=== PATIENT | female | born 1960 | race Hispanic/Latino ===

== ENCOUNTER 2019-01-15 06:10 | Emergency (ER) | payer BC ==
--- OUTSIDE RECORDS SUMMARY | 2019-01-15 06:15 | XMS REPORT | Clinical Summary ---
:1960 Author Organization [facility] Address [address] [place] [address] Care Team Providers Name Role Phone Kirby Gallegos MD Primary Care Provider Allergies Active Allergy Reactions Severity Noted Date Comments Adhesive Rash Low 02/15/2013 Codeine Nausea And Vomiting 02/15/2013 nausea Codeine Phosphate Nausea And Vomiting 08/14/2009 Phenylpropanolamin-Hydrocodone Nausea And Vomiting 08/14/2009 Medications Medication Sig Dispensed Refills Start End Date Status Date atorvastatin (LIPITOR) Take 20 mg by 5 Active 20 MG tablet mouth daily. 6 ranitidine (ZANTAC) Take 150 mg 0 Active 150 MG tablet by mouth nightly. lidocaine-prilocaine 0 Active (EMLA) 2.5-2.5 % cream 8 diclofenac (VOLTAREN) Apply 3 Tube 1 Active 1 % gel topically 4 8 (four) times a day. nitroglycerin Place 0.3 30 g 5 05/11/20 Active (NITROSTAT) 2 % inches on the 8 19 ointment skin 3 (three) times a day. Apply to affected digit(s) enoxaparin (LOVENOX) Inject 0.3 mL 20 Syringe 0 Active 30 mg/0.3 mL syringe (30 mg total) 8 under the skin every 12 (twelve) hours. amLODIPine (NORVASC) TAKE 1 TABLET 90 tablet 0 Active 10 mg tablet BY MOUTH 8 DAILY warfarin (COUMADIN) 1 TAKE 4 364 tablet 0 Active MG tablet TABLETS BY 8 MOUTH EVERY DAY DIRECTED levothyroxine TK 1 T PO QD. 3 Active (SYNTHROID, LEVOXYL) 9 75 mcg tablet sildenafil, TAKE 1 TABLET 90 tablet Active antihypertensive, BY MOUTH 9 (REVATIO) 20 mg tablet THREE TIMES DAILY warfarin (COUMADIN) 5 TAKE 1 TABLET 90 tablet 1 Active MG tablet BY MOUTH 9 EVERY DAY omeprazole (PriLOSEC) TAKE 1 180 capsule 3 Active 40 MG capsule CAPSULE BY 9 MOUTH TWICE DAILY hydroxychloroquine TAKE 2 180 tablet 0 11/03/19 Active (PLAQUENIL) 200 mg TABLETS BY 9 20 tablet MOUTH EVERY DAY losartan (COZAAR) 50 TAKE 1 TABLET 90 tablet 3 Active MG tablet BY MOUTH 9 EVERY DAY. FLUoxetine (PROzac) 10 TAKE 1 TABLET 90 tablet 0 Active MG tablet BY MOUTH 9 DAILY levothyroxine Take 50 mcg 0 08/25/19 Discontinued (SYNTHROID, by mouth 19 LEVOTHROID) 50 MCG every tablet morning. esomeprazole (NexIUM) Take by 0 03/29/20 Discontinued 40 mg packet mouth. 18 omeprazole (PriLOSEC) Take 1 180 capsule 1 01/17/20 Discontinued 40 MG capsule capsule (40 8 18 mg total) by mouth 2 (two) times a day. sildenafil, TAKE 1 TABLET 90 tablet 09/22/19 Discontinued antihypertensive, (20 MG TOTAL) 8 19 (REVATIO) 20 mg tablet THREE TIMES DAILY FLUoxetine (PROzac) 10 Take 1 tablet 90 tablet 1 03/16/20 Discontinued MG tablet (10 mg total) 8 18 by mouth daily. warfarin (COUMADIN) 5 TAKE 1 TABLET 30 tablet 4 03/14/20 Discontinued MG tablet BY MOUTH 8 18 EVERY DAY. amLODIPine (NORVASC) Take 1 tablet 30 tablet 5 04/26/20 Discontinued 10 mg tablet (10 mg total) 8 18 by mouth daily. nitroglycerin Place 0.3 30 g 0 05/11/20 Discontinued (NITROSTAT) 2 % inches on the 8 18 ointment skin 3 (three) times a day. Apply to affected digit(s) pentoxifylline Take 1 tablet 90 tablet 3 03/29/20 Discontinued (TRENTal) 400 mg CR (400 mg 8 18 tablet total) by mouth 3 (three) times a day with meals. rosuvastatin (CRESTOR) Take 1 tablet 30 tablet 3 11/12/19 20 MG tablet (20 mg total) 8 19 by mouth daily. hydroxychloroquine TAKE 2 180 tablet 1 05/23/20 Discontinued (PLAQUENIL) 200 mg TABLETS BY 8 18 tablet MOUTH ONCE DAILY. warfarin (COUMADIN) 1 TAKE 4 360 tablet 0 06/18/20 Discontinued MG tablet TABLETS BY 8 18 MOUTH ONCE DAILY DIRECTED. omeprazole (PriLOSEC) TAKE ONE 180 capsule 0 04/16/20 Discontinued 40 MG capsule CAPSULE BY 8 18 MOUTH TWICE DAILY diclofenac (VOLTAREN) Apply 2 g 0 05/11/20 Discontinued 1 % gel topically 4 18 (four) times a day. warfarin (COUMADIN) 5 TAKE 1 TABLET 30 tablet 5 09/27/19 Discontinued MG tablet BY MOUTH 8 19 EVERY DAY FLUoxetine (PROzac) 10 TAKE 1 TABLET 90 tablet 1 09/23/19 Discontinued MG tablet BY MOUTH 8 19 DAILY. traMADol-acetaminophen Take 50 0 03/29/20 Discontinued (ULTRACET) 37.5-325 mg tablets by 18 per tablet mouth every 6 (six) hours. losartan (COZAAR) 50 Take 1 tablet 30 tablet 1 05/31/20 Discontinued MG tablet (50 mg total) 8 18 by mouth daily. omeprazole (PriLOSEC) TAKE 1 180 capsule 0 07/24/19 Discontinued 40 MG capsule CAPSULE BY 8 19 MOUTH TWICE DAILY amLODIPine (NORVASC) TAKE 1 TABLET 30 tablet 0 05/31/20 Discontinued 10 mg tablet BY MOUTH 8 18 DAILY. hydroxychloroquine TAKE 2 180 tablet 0 08/07/19 Discontinued (PLAQUENIL) 200 mg TABLETS BY 8 19 tablet MOUTH EVERY DAY amLODIPine (NORVASC) TAKE 1 TABLET 30 tablet 0 05/31/20 Discontinued 10 mg tablet BY MOUTH 8 18 DAILY losartan (COZAAR) 50 TAKE 1 30 tablet 0 07/02/20 Discontinued MG tablet TABLET(50 MG) 8 18 BY MOUTH DAILY warfarin (COUMADIN) 1 TAKE 4 360 tablet 0 06/20/20 Discontinued MG tablet TABLETS BY 8 18 MOUTH EVERY DAY DIRECTED losartan (COZAAR) 50 TAKE 1 30 tablet 0 07/04/20 Discontinued MG tablet TABLET(50 MG) 8 18 BY MOUTH DAILY losartan (COZAAR) 50 TAKE 1 90 tablet 0 12/11/19 Discontinued MG tablet TABLET(50 MG) 8 19 BY MOUTH DAILY omeprazole (PriLOSEC) TAKE 1 180 capsule 0 10/22/19 Discontinued 40 MG capsule CAPSULE BY 9 19 MOUTH TWICE DAILY losartan (COZAAR) 50 TAKE 1 30 tablet 0 08/25/19 Discontinued MG tablet TABLET(50 MG) 9 19 BY MOUTH DAILY hydroxychloroquine TAKE 2 180 tablet 0 11/03/19 Discontinued (PLAQUENIL) 200 mg TABLETS BY 9 19 tablet MOUTH EVERY DAY FLUoxetine (PROzac) 10 TAKE 1 TABLET 90 tablet 0 12/28/19 Discontinued MG tablet BY MOUTH 9 19 DAILY amLODIPine (NORVASC) TAKE 1 TABLET 30 tablet 0 11/09/19 Discontinued 10 mg tablet BY MOUTH 9 19 DAILY amLODIPine (NORVASC) TAKE 1 TABLET 90 tablet 1 12/22/19 Discontinued 10 mg tablet BY MOUTH 9 19 DAILY Active Problems Problem Noted Date Ischemic ulcer of finger with fat layer exposed 03/29/2018 Raynaud disease 12/28/2017 Chronic diarrhea 09/22/2017 Lower abdominal pain 09/22/2017 Plantar fasciitis of left foot 05/25/2017 Entrapment of right ulnar nerve 09/17/2016 Pain of left heel 09/17/2016 CREST syndrome 05/27/2016 Carpal tunnel syndrome, left 05/27/2016 Carpal tunnel syndrome of right wrist 05/27/2016 GERD (gastroesophageal reflux disease) 12/18/2015 Other forms of systemic lupus erythematosus 12/18/2015 Overview: anticoagulant Raynaud's disease with gangrene 12/18/2015 Sjogren's syndrome 12/18/2015 Small bowel telangectasias 12/18/2015 degenerative disc disease 12/18/2015 Overview: Confirmed with lumbar MRI Renal cell carcinoma 12/18/2015 Overview: Removed 2010 Renal stones 12/18/2015 Resolved Problems Problem Noted Date Resolved Date Infection of finger 11/10/2016 08/25/2018 Encounters Date Type Specialty Care Team Description 12/27/2018 Refill Rheumatology Maris Morejon MD 12/21/2018 Office Visit Rheumatology Darleen, Sjogren's syndrome with keratoconjunctivitis sicca (HCC) (Primary Dx); MD Maris Other systemic lupus erythematosus with other organ involvement (HCC); Raynaud's disease with gangrene (HCC); CREST syndrome (HCC); High risk medication use; Anticoagulant long-term use 12/10/2018 Refill Rheumatology Maris Morejon MD 11/08/2018 Refill Rheumatology Maris Morejon MD 11/07/2018 Refill Rheumatology Maris Morejon MD 11/02/2018 Refill Rheumatology Maris Morejon MD 10/21/2018 Refill Rheumatology Maris Morejon MD 09/26/2018 Refill Rheumatology Maris Morejon MD 09/22/2018 Refill Rheumatology Maris Morejon MD 09/21/2018 Refill Rheumatology Maris Morejon MD 08/25/2018 Office Visit Rheumatology Darleen, Sjogren's syndrome with keratoconjunctivitis sicca (HCC) (Primary Dx); MD Maris High risk medication use; Other systemic lupus erythematosus with other organ involvement (HCC); CREST syndrome (HCC); Gastroesophageal reflux disease with esophagitis 08/25/2018 Orders Only Rheumatology Mcmahon, Sicca syndrome with VAL Pineda keratoconjunctivitis (HCC) (Primary Dx) 08/07/2018 Refill Rheumatology Maris Morejon MD 07/30/2018 Refill Rheumatology Maris Morejon MD 07/24/2018 Refill Rheumatology Maris Morejon MD 07/03/2018 Refill Rheumatology Maris Morejon MD 07/02/2018 Refill Rheumatology Maris Morejon MD 07/01/2018 Orders Only Rheumatology Diana Rico MD 07/01/2018 Telephone Rheumatology Parish Morgan MA 06/20/2018 Refill Rheumatology Maris Morejon MD 06/18/2018 Refill Rheumatology Maris Morejon MD 06/14/2018 Telephone Rheumatology Liza Foster MA 05/31/2018 Refill Rheumatology Maris Morejon MD 05/31/2018 Refill Rheumatology Maris Morejon MD 05/31/2018 Telephone Rheumatology Liza Foster MA 05/23/2018 Refill Rheumatology Maris Morejon MD 05/17/2018 Telephone Rheumatology Liza Foster MA 05/11/2018 Office Visit Rheumatology Darleen, CREST syndrome (HCC) (Primary Dx); MD Maris Ischemic ulcer of finger with fat layer exposed (HCC); Gastroesophageal reflux disease with esophagitis; High risk medication use; Anticoagulant long-term use 05/11/2018 Telephone Rheumatology Parish Morgan MA 04/29/2018 Clinical Physical Medicine Kenya Yoder Raynaud's disease with gangrene (HCC) (Primary Dx); Support and Rehabilitation MD Star Shresthanaud's disease without gangrene 04/26/2018 Refill Rheumatology Maris Morejon MD 04/16/2018 Refill Rheumatology Maris Morejon MD 03/31/2018 Telephone Rheumatology Maris Morejon MD 03/29/2018 Office Visit Rheumatology Darleen, Raynaud's disease with gangrene (Primary Dx); MD Maris Ischemic ulcer of finger, limited to breakdown of skin; CREST syndrome; Sjogren's syndrome with keratoconjunctivitis sicca; High risk medication use; Anticoagulant long-term use 03/24/2018 Telephone Rheumatology Liza Foster MA 03/24/2018 Telephone Rheumatology Liza Foster MA 03/16/2018 Refill Rheumatology Maris Morejon MD 03/14/2018 Refill Rheumatology Maris Morejon MD 02/25/2018 Office Visit Physical Medicine Kenya Yoder Raynaud's disease without gangrene (Primary Dx); and Rehabilitation MD Star Shresthanaud's disease with gangrene 01/24/2018 Orders Only Rheumatology ProviderDiana MD 01/21/2018 Clinical Physical Medicine [place] Yoder's disease with Support and Rehabilitation MD Henrietta gangrene (Primary Dx) 01/16/2018 Refill Rheumatology Maris Morejon MD after 01/14/2018 Family History Medical History Relation Name Comments Cancer Other aunt stomach ca Other Other niece abdominal desmoid tumor Lupus Other niece antiocoagulant Diabetes Sister Rheum arthritis Sister bhavin owusu +ccp Relation Name Status Comments Other aunt Other Other niece Other Other niece Other Sister Sister bhavin owusu Alive Social History Tobacco Use Types Packs/Day Years Used Date Never Smoker Smokeless Tobacco: Never Used Alcohol Use Drinks/Week oz/Week Comments Yes 1-2 Cans of beer 0.6 - 1.2 1-2 per month Sex Assigned at Date Recorded Not on file Job Start Date Occupation Industry Not on file Not on file Not on file Travel History Travel Start Travel End No recent travel history available. Last Filed Vital Signs Vital Sign Reading Time Taken Blood Pressure 120/58 12/21/2018 2:07 PM CDT Pulse 73 12/21/2018 2:07 PM CDT Temperature - - Respiratory Rate - - Oxygen Saturation - - Inhaled Oxygen Concentration - - Weight 71.2 kg (157 lb) 12/21/2018 2:07 PM CDT Height 157.5 cm (5' 2") 05/11/2018 8:45 AM CDT Body Mass Index 28.72 05/11/2018 8:45 AM CDT Plan of Treatment Date Type Specialty Care Team Description 04/24/2019 Office [place] [address] [facility] [address] [place] [id number] Health Maintenance Due Date Last Done Comments BREAST CANCER SCREENING 2010 COLONOSCOPY SCREENING 2010 SHINGLES VACCINES (#1) 2010 INFLUENZA VACCINE 02/09/2019 Procedures Procedure Name Priority Date/Time Associated Diagnosis Comments MICROSCOPIC EXAMINATION Routine 12/21/2018 Results for 2:50 PM CDT this procedure are in the results section. URINE Routine 12/21/2018 Other systemic lupus Results for PROTEIN/CREATININE 2:50 PM CDT erythematosus with other this procedure RATIO, RANDOM organ involvement (HCC) are in the results section. C4 COMPLEMENT COMPONENT Routine 12/21/2018 Other systemic lupus Results for 2:50 PM CDT erythematosus with other this procedure organ involvement (HCC) are in the results section. C3 COMPLEMENT COMPONENT Routine 12/21/2018 Other systemic lupus Results for 2:50 PM CDT erythematosus with other this procedure organ involvement (HCC) are in the results section. DNA AB SCREEN Routine 12/21/2018 Other systemic lupus Results for 2:50 PM CDT erythematosus with other this procedure organ involvement (HCC) are in the results section. URINALYSIS, AUTOMATED Routine 12/21/2018 Other systemic lupus Results for WITH MICROSCOPY 2:50 PM CDT erythematosus with other this procedure organ involvement (HCC) are in the results section. C-REACTIVE PROTEIN Routine 12/21/2018 Other systemic lupus Results for 2:50 PM CDT erythematosus with other this procedure organ involvement (HCC) are in the results section. SEDIMENTATION RATE Routine 12/21/2018 Other systemic lupus Results for 2:50 PM CDT erythematosus with other this procedure organ involvement (HCC) are in the results section. COMPREHENSIVE METABOLIC Routine 12/21/2018 Other systemic lupus Results for PANEL 2:50 PM CDT erythematosus with other this procedure organ involvement (HCC) are in the results section. CBC WITH PLATELET AND Routine 12/21/2018 Other systemic lupus Results for DIFFERENTIAL 2:50 PM CDT erythematosus with other this procedure organ involvement (HCC) are in the results section. HYDROXYCHLOROQUINE Routine 12/21/2018 High risk medication use Results for 2:50 PM CDT this procedure are in the results section. PROTHROMBIN TIME WITH Routine 12/21/2018 Anticoagulant long-term Results for INR 2:50 PM CDT use this procedure are in the results section. PROTHROMBIN TIME WITH Routine 08/25/2018 Sicca syndrome with Results for INR 11:13 AM [employer] keratoconjunctivitis this procedure (HCC) are in the results section. MICROSCOPIC EXAMINATION Routine 08/25/2018 Results for 11:10 AM [employer] this procedure are in the results section. URINALYSIS, AUTOMATED Routine 08/25/2018 Sjogren's syndrome with Results for WITH MICROSCOPY 11:10 AM [employer] keratoconjunctivitis this procedure sicca (HCC) are in the results section. C-REACTIVE PROTEIN Routine 08/25/2018 Sjogren's syndrome with Results for 11:10 AM [employer] keratoconjunctivitis this procedure sicca (HCC) are in the results section. SEDIMENTATION RATE Routine 08/25/2018 Sjogren's syndrome with Results for 11:10 AM [employer] keratoconjunctivitis this procedure sicca (HCC) are in the results section. COMPREHENSIVE METABOLIC Routine 08/25/2018 Sjogren's syndrome with Results for PANEL 11:10 AM [employer] keratoconjunctivitis this procedure sicca (HCC) are in the results section. CBC WITH PLATELET AND Routine 08/25/2018 Sjogren's syndrome with Results for DIFFERENTIAL 11:10 AM [employer] keratoconjunctivitis this procedure sicca (HCC) are in the results section. [id number] Routine 06/28/2018 PROTHROMBIN TIME WITH Routine 05/11/2018 Anticoagulant long-term Results for INR 9:37 AM CDT use this procedure are in the results section. NM NEEDLE EMG GUIDANCE Routine 04/29/2018 Raynaud's disease with Results for FOR CHEMODENERVATION 10:30 AM CDT gangrene (HCC) this procedure are in the results section. NM CHEMODENERVATION ONE Routine 04/29/2018 Raynaud's disease with Results for EXTREMITY 1-4 MUSCLE 10:30 AM CDT gangrene (HCC) this procedure are in the results section. MICROSCOPIC EXAMINATION Routine 03/29/2018 Results for 9:35 AM CDT this procedure are in the results section. PROTHROMBIN TIME WITH Routine 03/29/2018 Anticoagulant long-term Results for INR 9:35 AM CDT use this procedure are in the results section. URINALYSIS, AUTOMATED Routine 03/29/2018 Raynaud's disease with Results for WITH MICROSCOPY 9:35 AM CDT gangrene this procedure are in the results section. C-REACTIVE PROTEIN Routine 03/29/2018 Raynaud's disease with Results for 9:35 AM CDT gangrene this procedure are in the results section. SEDIMENTATION RATE Routine 03/29/2018 Raynaud's disease with Results for 9:35 AM CDT gangrene this procedure are in the results section. COMPREHENSIVE METABOLIC Routine 03/29/2018 Raynaud's disease with Results for PANEL 9:35 AM CDT gangrene this procedure are in the results section. CBC WITH PLATELET AND Routine 03/29/2018 Raynaud's disease with Results for DIFFERENTIAL 9:35 AM CDT gangrene this procedure are in the results section. NM NEEDLE EMG GUIDANCE Routine 01/21/2018 Raynaud's disease with Results for FOR CHEMODENERVATION 11:00 AM CDT gangrene this procedure are in the results section. NM CHEMODENERVATION ONE Routine 01/21/2018 Raynaud's disease with Results for EXTREMITY 1-4 MUSCLE 11:00 AM CDT gangrene this procedure are in the results section. after 01/14/2018 Results Hydroxychloroquine (12/21/2018 2:50 PM CDT) Pathologist [facility] Hydroxychloroquine 930 (H) ng/mL [facility] Comment: Reporting Limit: 10 ng/mL Synonym(s): Plaquenil(R); Oxychloroquine Peak plasma concentrations of 410 +/- 130 ng/mL were achieved 2.4 hours after a single oral dose of 400 mg hydroxychloroquine (n=6). Two cases of hydroxychloroquine overdose (20 g each) were successfully treated throughout cardiovascular collapse [place] [address] and [address] ng/mL. Analysis by High Performance Liquid Chromatography/ Tandem Mass Spectrometry (LC-MS/MS) Specimen Narrative Performed At Performed at:[address] [place] [address] [facility] [id number] Component Assembler: Shubham Saavedra PhD, Phone:[phone] Performing Organization Address [facility] Phone Number [facility] Microscopic Examination (12/21/2018 2:50 PM CDT)Only the most recent of3 resultswithin the time period is included. WBC, UA 0-5 0 - 5 /hpf [facility] RBC, UA 0-2 0 - 2 /hpf [facility] Epithelial cells (non renal) 0-10 0 - 10 /hpf [facility] Mucus, UA Present Not Estab. [facility] Bacteria, UA Few None seen/Few [facility] Specimen Narrative Performed At Performed at:[address] [place] [address] [id number] Component Assembler: Matthew Buckner MD, Phone:[phone] Performing Organization Address [facility] Phone Number [facility] DNA Ab screen (12/21/2018 2:50 PM CDT) Pathologist [facility] DNA ds antibody 7 0 - 9 IU/mL [facility] Comment: Negative<5 Equivocal5 - 9 Positive>9 Specimen Blood Narrative Performed At Performed at:[address] [place] [address] [id number] Component Assembler: Matthew Buckner MD, Phone:[phone] Performing Organization Address [facility] Phone Number [facility] Urine protein/creatinine ratio, random (12/21/2018 2:50 PM CDT) Pathologist [facility] Creatinine, urine, random 73.3 Not Estab. mg/dL [facility] Protein, urine 9.6 Not Estab. mg/dL [facility] Protein/Creat Ratio 131 0 - 200 mg/g creat [facility] Specimen Urine Narrative Performed At Performed at: [id number] Component Assembler: Matthew Buckner MD, Phone:[phone] Performing Organization Address [facility] Phone Number [facility] Urinalysis, automated with microscopy (12/21/2018 2:50 PM CDT)Only the most recent of3 resultswithin the time period is included. Pathologist [facility] Specific gravity, 1.013 1.005 - 1.030 [facility] urine pH, urine 5.0 5.0 - 7.5 [facility] Color, UA Yellow Yellow [facility] Appearance Clear Clear [facility] WBC esterase, urine Negative Negative [facility] Protein, UA Negative Negative/Trace [facility] Glucose, urine Negative Negative [facility] Ketones, UA Negative Negative [facility] Occult blood, urine Negative Negative [facility] Bilirubin, UA Negative Negative [facility] Urobilinogen, UA 0.2 0.2 - 1.0 mg/dL [facility] Nitrite, UA Negative Negative [facility] Microscopic CommentComment: [facility] examination Microscopic follows if indicated. Microscopic See below:Comment: [facility] examination Microscopic was indicated and was performed. Specimen Urine Narrative Performed At Performed at:[address] [place] [address] [id number] Component Assembler: Matthew Buckner MD, Phone:[phone] Performing Organization Address [facility] Phone Number [facility] Sedimentation rate (12/21/2018 2:50 PM CDT)Only the most recent of3 resultswithin the time period is included. Pathologist [facility] Sedimentation rate 6 0 - 40 mm/hr [facility] Specimen Blood Narrative Performed At Performed at:[address] [place], [place] [id number] Component Assembler: Matthew Buckner MD, Phone:[phone] Performing Organization Address [facility] Phone Number [facility] Prothrombin time with INR (12/21/2018 2:50 PM CDT)Only the most recent of4 resultswithin the time period is included. Pathologist [facility] INR 2.7 (H) 0.8 - 1.2 [facility] Comment: Reference interval is for non-anticoagulated patients. Suggested INR therapeutic range for Vitamin K antagonist therapy: Standard Dose (moderate intensity therapeutic range): 2.0 - 3.0 Higher intensity therapeutic range 2.5 - 3.5 Prothrombin time 26.3 (H) 9.1 - 12.0 sec [facility] Specimen Blood Narrative Performed At Performed at:[facility] [address] [place], [id number] Component Assembler: Matthew Buckner MD, Phone:[phone] Performing Organization Address City/State/Zipcode Phone Number [facility] CBC with platelet and differential (12/21/2018 2:50 PM CDT)Only the most recent of3 resultswithin the time period is included. Pathologist [facility] WBC 4.0 3.4 - 10.8 x10E3/uL [facility] RBC 4.21 3.77 - 5.28 x10E6/uL [facility] HGB 12.5 11.1 - 15.9 g/dL [facility] HCT 37.4 34.0 - 46.6 % [facility] MCV 89 79 - 97 fL [facility] MCH 29.7 26.6 - 33.0 pg [facility] MCHC 33.4 31.5 - 35.7 g/dL [facility] RDW 13.7 12.3 - 15.4 % [facility] Platelet count 236 150 - 450 x10E3/uL [facility] Neutrophils 66 Not Estab. % [facility] Lymphocytes 21 Not Estab. % [facility] Monocytes 9 Not Estab. % [facility] Eosinophils 3 Not Estab. % [facility] Basophils 1 Not Estab. % [facility] Neutrophils, absolute 2.6 1.4 - 7.0 x10E3/uL [facility] Lymphocytes, absolute 0.8 0.7 - 3.1 x10E3/uL [facility] Monocytes, absolute 0.4 0.1 - 0.9 x10E3/uL [facility] Eosinophils, absolute 0.1 0.0 - 0.4 x10E3/uL [facility] Basophils, absolute 0.0 0.0 - 0.2 x10E3/uL [facility] Immature granulocytes 0 Not Estab. % [facility] Immature grans (abs) 0.0 0.0 - 0.1 x10E3/uL [facility] Specimen Blood Narrative Performed At Performed at:[address] [place] [id number] Component Assembler: Matthew Buckner MD, Phone:[phone] Performing Organization Address [facility] Phone Number [facility] C3 complement component (12/21/2018 2:50 PM CDT) [facility] C3 complement 134 82 - 167 mg/dL [facility] Specimen Blood Narrative Performed At Performed at:[address] [place], [place] [id number] Component Assembler: Matthew Buckner MD, Phone:[phone] Performing Organization Address [facility] Phone Number [facility] C4 complement component (12/21/2018 2:50 PM CDT) [facility] C4 complement 32 14 - 44 mg/dL [facility] Specimen Blood Narrative Performed At Performed at:[address] [place], [place] [id number] Component Assembler: Matthew Buckner MD, Phone:[phone] Performing Organization Address [facility] Phone Number [facility] C-reactive protein (12/21/2018 2:50 PM CDT)Only the most recent of3 resultswithin the time period is included. Pathologist [facility] CRP 2.8 0.0 - 4.9 mg/L [facility] Comment: Effective December 26, 2018 the reference interval for C-Reactive Protein, Quant, will be changing to: Age Male Female 0- 30 days Not Estab. Not Estab. 1 month - 17 years 0 -7 0 -9 >17 years 0 - 10 0 - 10 Specimen Blood Narrative Performed At Performed at:[address] [place], [place] [id number] Component Assembler: Matthew Buckner MD, Phone:[phone] Performing Organization Address [facility] Phone Number [facility] Comprehensive metabolic panel (12/21/2018 2:50 PM CDT)Only the most recent of3 resultswithin the time period is included. Glucose 95 65 - 99 mg/dL [facility] BUN, whole blood 18 6 - 24 mg/dL [facility] Creatinine 1.15 (H) 0.57 - 1.00 mg/dL [facility] EGFR Non-Afr. Lithuanian 53 (L) >59 mL/min/1.73 [facility] EGFR 61 >59 mL/min/1.73 [facility] BUN/creatinine ratio 16 9 - 23 [facility] Sodium 141 134 - 144 mmol/L [facility] Potassium 3.9 3.5 - 5.2 mmol/L [facility] Chloride 105 96 - 106 mmol/L [facility] CO2 21 20 - 29 mmol/L [facility] Calcium 9.3 8.7 - 10.2 mg/dL [facility] Protein 6.4 6.0 - 8.5 g/dL [facility] Albumin, S 4.1 3.5 - 5.5 g/dL [facility] Globulin, total 2.3 1.5 - 4.5 g/dL [facility] Albumin/globulin ratio 1.8 1.2 - 2.2 [facility] Total bilirubin 0.3 0.0 - 1.2 mg/dL [facility] Alkaline phosphatase 91 39 - 117 IU/L [facility] AST 17 0 - 40 IU/L [facility] ALT 16 0 - 32 IU/L [facility] Specimen Blood Narrative Performed At Performed at: - [facility] [address] [place], [place] [id number] Component Assembler: Matthew Buckner MD, Phone:[phone] Performing Organization Address City/State/Zipcode Phone Number [facility] Miscellaneous Lab Result (06/28/2018) Specimen Blood Narrative Performed At Botulinum Toxin Injection (04/29/2018 10:30 AM CDT) Narrative Performed At Kenya Yoder MD 04/29/2018 12:49 PM Botulinum Injection Date/Time: 04/29/2018 8:51 AM Performed by: KENYA YODER Authorized by: KENYA YODER Consent: Consent obtained:Written Consent given by:Patient Risks discussed:Bleeding, excessive weakness, muscle atrophy, venous thrombosis and pain and discomfort Benefits discussed:Decreased muscle tightness, increased joint range of motion and decreased pain Huntley protocol: Procedure explained and questions answered to patient or proxy's satisfaction: yes Test results available and properly labeled: no Relevant documents present and verified: yes Imaging studies available: no Required blood products, implants, devices, and special equipment available: no Site/side marked: no Immediately prior to procedure a time out was called: no Patient identity confirmed:Verbally with patient and provided demographic data Pre-procedure details: Limited electromyography confirmed needle location within the muscle: Yes In some muscles, electrical stimulation was used to localize muscle: No Procedure details: Agent Botulinum Toxin:Xeomin Pharmacy: Medications provided by specialty pharmacy - do not bill patient Total Units Injected:100 Xeomin Medications Administered:100 Units incobotulinumtoxinA 100 Units Upper Extremity Muscles: Additional Left Units Injected: Additional Left Muscles Details: 100 iu was injected between the lumbricals / interdigits Additional Right Units Injected: Additional Right Muscles Details: EMG Guidance Used: emg guidance used Number of EMG Guidance Used:1 Post-procedure details: Patient tolerance of procedure:Tolerated well, no immediate complications Comments: Benefits discussed included, but were not limited to decreased muscle tightness, increased joint range of motion, and decreased pain. Risks discussed included but not limited to pain and discomfort, bleeding excessive weakness, venous thrombosis, and muscle atrophy. Details of Procedure: Muscles to be treated were identified using anatomical landmarks described by Elizabethet al;(1994) Skin was cleaned with alcohol.A hollow monopolar needle was introduced to the target muscles. Prior to injection, the needle plunger was aspirated to make sure that the needle was not within a blood vessel. There was no blood retrieved on aspiration. Botulinum Toxin Injection (01/21/2018 11:00 AM CDT) Narrative Performed At Kenya Yoder MD 01/21/2018 12:58 PM Botulinum Injection Date/Time: 01/21/2018 9:00 AM Performed by: KENYA YODER Authorized by: KENYA YODER Consent: Consent obtained:Written Consent given by:Patient Risks discussed:Bleeding, excessive weakness, muscle atrophy, venous thrombosis and pain and discomfort Benefits discussed:Decreased muscle tightness, increased joint range of motion and decreased pain Huntley protocol: Procedure explained and questions answered to patient or proxy's satisfaction: yes Test results available and properly labeled: no Relevant documents present and verified: yes Imaging studies available: no Required blood products, implants, devices, and special equipment available: no Site/side marked: no Immediately prior to procedure a time out was called: no Patient identity confirmed:Verbally with patient and provided demographic data Pre-procedure details: Limited electromyography confirmed needle location within the muscle: Yes In some muscles, electrical stimulation was used to localize muscle: No Procedure details: Agent Botulinum Toxin:Xeomin (lot [id number] 03/2020) Pharmacy: Medications provided by specialty pharmacy - do not bill patient Total Units Injected:100 Xeomin Medications Administered:100 Units incobotulinumtoxinA 100 Units Upper Extremity Muscles: Additional Left Units Injected: Additional Left Muscles Details: Lumbricals (Injections placed between digits and near palmar crease) Four injections in the web space and and three along the sandy crease with total of seven injection sites Additional Right Units Injected: Additional Right Muscles Details: EMG Guidance Used: emg guidance used Number of EMG Guidance Used:1 Post-procedure details: Patient tolerance of procedure:Tolerated well, no immediate complications Comments: Benefits discussed included, but were not limited to decreased muscle tightness, increased joint range of motion, and decreased pain. Risks discussed included but not limited to pain and discomfort, bleeding excessive weakness, venous thrombosis, and muscle atrophy. Details of Procedure: Muscles to be treated were identified using anatomical landmarks described by Elizabethet al;(1994) Skin was cleaned with alcohol.A hollow monopolar needle was introduced to the target muscles. Prior to injection, the needle plunger was aspirated to make sure that the needle was not within a blood vessel. There was no blood retrieved on aspiration. after 01/14/2018 [phone] [id number] (Work) Advance Directives Patient has advance care planning documents on file. For more information, please contact:[place] [address]
[2019-01-15] MEDS ORDERED: CYCLOBENZAPRINE 10 MG TAB ONE (07:11)
--- NOTE | 2019-01-15 08:15 | ER ---
Nurse's Notes [facility] Name: Yaa Jacobo Age: 58 yrs Sex: Female : 1960 Arrival Date: 01/15/2019 Time: 06:11 Bed 16 Private MD: Kirby Gallegos Diagnosis: Pain in right leg Presentation: 01/15 06:15 Presenting complaint: Patient states: that on Wednesday she started to have right hip pain fc and now the pain is going down her leg. Pt states that she had her INR checked 2 weeks ago and it was 4.2. Denies any injury. Transition of care: patient was not received from another setting of care. Onset of symptoms was January 14, 2019. Risk Assessment: Do you want to hurt yourself or someone else? Patient reports no desire to harm self or others. Initial Sepsis Screen: Does the patient meet any 2 criteria? No. Patient's initial sepsis screen is negative. Does the patient have a suspected source of infection? No. Patient's initial sepsis screen is negative. Care prior to arrival: None. 06:15 Method Of Arrival: Ambulatory fc 06:15 Acuity: JODIE 3 fc Historical: - Allergies: 06:35 Codeine; fc - Home Meds: 06:35 tramadol 50 mg Oral tab 1 tab tid prn [Active]; sildenafil 20 mg oral tab 1 tab 3 times fc per day [Active]; losartan 50 mg oral tab 1 tab once daily [Active]; Coumadin 7 mg Oral once daily [Active]; omeprazole 40 mg Oral cpDR 1 cap 2 times per day [Active]; fluoxetine 10 mg oral tab 1 tabs once daily [Active]; amlodipine 10 mg tab 1 tab once daily [Active]; - PMHx: 06:35 Hypertension; PVD; lupus anticoag; blood clot in foot; reynods; scleraderma; fc - PSHx: 06:35 Appendectomy; Cholecystectomy; Hysterectomy; partial nephrectomy - right; Bladder fc suspension; - Immunization history:: Last tetanus immunization: up to date. - Social history:: Smoking status: Patient/guardian denies using tobacco, Patient/guardian denies using alcohol, street drugs. - Ebola Screening: : Patient negative for fever greater than or equal to 101.5 degrees Fahrenheit, and additional compatible Ebola Virus Disease symptoms Patient denies exposure to infectious person Patient denies travel to an Ebola-affected area in the 21 days before illness onset. Screenin:32 Abuse screen: Denies threats or abuse. Nutritional screening: No deficits noted. fc Tuberculosis screening: No symptoms or risk factors identified. Fall Risk None identified. Assessment: 06:20 General: Appears in no apparent distress. uncomfortable, Behavior is calm, cooperative, jb4 appropriate for age. Pain: Complains of pain in right hip and lateral aspect of right knee Pain radiates to right calf Pain currently is 9 out of 10 on a pain scale. Quality of pain is described as aching. Neuro: Level of Consciousness is awake, alert, obeys commands, Oriented to person, place, time, situation. Cardiovascular: Patient's skin is warm and dry. Respiratory: Airway is patent Respiratory effort is even, unlabored, Respiratory pattern is regular, symmetrical. GI: No signs and/or symptoms were reported involving the gastrointestinal system. : No signs and/or symptoms were reported regarding the genitourinary system. EENT: No signs and/or symptoms were reported regarding the EENT system. Derm: Skin is intact, Skin is dry, Skin is normal, Skin temperature is warm. Musculoskeletal: Circulation, motion, and sensation intact. 07:04 Reassessment: Patient appears in no apparent distress at this time. Patient and/or jb4 family updated on plan of care and expected duration. Pain level reassessed. Patient is alert, oriented x 3, equal unlabored respirations, skin warm/dry/pink. 08:00 Reassessment: Patient appears in no apparent distress at this time. Patient and/or em family updated on plan of care and expected duration. Pain level reassessed. Patient is alert, oriented x 3, equal unlabored respirations, skin warm/dry/pink. Patient states symptoms have not improved. Vital Signs: 06:15 BP 157 / 72; Pulse 77; Resp 18; Temp 97.7(O); Pulse Ox 100% on R/A; Weight 72.57 kg fc (R); Height 5 ft. 2 in. (157.48 cm) (R); Pain 9/10; 07:00 BP 139 / 56; Pulse 66; Resp 18; Pulse Ox 99% on R/A; Pain 9/10; em 06:15 Body Mass Index 29.26 (72.57 kg, 157.48 cm) ED Course: 06:11 Patient arrived in ED. ds1 06:11 Kirby Gallegos MD is Private Physician. ds1 06:15 Arm band placed on Patient placed in an exam room, on a stretcher. fc 06:24 Adrienne Larry FNP-C is [facility]. kb 06:24 Roladn Welch MD is Attending Physician. kb 06:31 Triage completed. fc 06:32 Patient has correct armband on for positive identification. Bed in low position. Call fc light in reach. Pulse ox on. NIBP on. 06:32 No provider procedures requiring assistance completed. fc 06:53 Mark Sheridan, RN is Primary Nurse. jb4 07:23 Femur Right XRAY In Process Unspecified. EDMS 07:48 Ultrasound completed. Patient tolerated well. sg3 07:48 US Extremity Venous Unilateral Ltd In Process Unspecified. EDMS 09:01 Patient did not have IV access during this emergency room visit. em Administered Medications: 06:58 Drug: Flexeril 10 mg Route: PO; jb4 08:00 Follow up: Response: No adverse reaction; Pain is decreased em 08:49 Drug: morphine 4 mg Route: IM; Site: right deltoid; em 09:10 Follow up: Response: No adverse reaction; Pain is decreased em Outcome: 08:13 Discharge ordered by MD. kb 09:00 Discharged to home ambulatory, with family. em 09:00 Condition: good 09:00 Discharge instructions given to patient, family, Instructed on discharge instructions, follow up and referral plans. medication usage, Demonstrated understanding of instructions, follow-up care, medications, Prescriptions given X 2. 09:11 Patient left the ED. em Signatures: Dispatcher [employer] EDMS Adrienne Larry FNP-C FNP-Ckb Chretien, Felicia, RN RN Ellis Ramirez, SALES LEDGER CLERK SALES LEDGER CLERK em Mariangel Alcala ds1 Mark Sheridan, RN RN jbFlori Seo sg3 Corrections: (The following items were deleted from the chart) 07:09 05:55 General: Appears in no apparent distress. uncomfortable, Behavior is calm, jb4 cooperative, appropriate for age, jb4 07:09 05:55 Pain: Complains of pain in right hip and lateral aspect of right knee Pain jb4 radiates to right calf Pain currently is 9 out of 10 on a pain scale. Quality of pain is described as aching, jb4 05:55 Neuro: Level of Consciousness is awake, alert, obeys commands, Oriented to jb4 person, place, time, situation, jb4 05:55 Cardiovascular: Patient's skin is warm and dry. jb4 jb4 : 05:55 Respiratory: Airway is patent Respiratory effort is even, unlabored, Respiratory jb4 pattern is regular, symmetrical, jb4 05:55 GI: No signs and/or symptoms were reported involving the gastrointestinal system. jb4 jb4 : 05:55 : jb4 jb4 05:55 EENT: No signs and/or symptoms were reported regarding the EENT system. jb4 jb4 05:55 Derm: Skin is intact, Skin is dry, Skin is normal, Skin temperature is warm jb4 jb4 05:55 Musculoskeletal: Circulation, motion, and sensation intact. jb4 jb4
--- NOTE | 2019-01-15 08:15 | EDPHYS ---
Physician Documentation [facility] Name: Yaa Jacobo Age: 58 yrs Sex: Female : 1960 Arrival Date: 01/15/2019 Time: 06:11 Bed 16 Private MD: Kirby Gallegos ED Physician Roland Welch HPI: 01/15 07:29 This 58 yrs old Female presents to ER via Ambulatory with complaints of Hip kb Pain, Leg Pain-R Side. 07:29 The patient presents with pain, that is acute. Context: The problem was sustained at home, resulted from an unknown cause, the patient can fully bear weight, the patient is able to ambulate. 07:30 The complaints affect the right hamstring, posterior aspect of right knee and right kb calf. Onset: The symptoms/episode began/occurred 3 day(s) ago. Modifying factors: The symptoms are alleviated by nothing. the symptoms are aggravated by standing from sitting position. Associated signs and symptoms: The patient has no apparent associated signs or symptoms. Treatment prior to arrival includes: no previous treatment. Severity of symptoms: At their worst the symptoms were moderate, in the emergency department the symptoms are unchanged. The patient has not experienced similar symptoms in the past. The patient has not recently seen a physician. Pt reports she has had some pain when she stands from a sitting position for a while now. States it got worse 3 days ago. Now complains of pain down the back of her leg (thigh, behind knee and calf). Came in because she wants to make sure she doesn't have a clot. Historical: - Allergies: 06:35 Codeine; fc - Home Meds: 06:35 tramadol 50 mg Oral tab 1 tab tid prn [Active]; sildenafil 20 mg oral tab 1 tab 3 times fc per day [Active]; losartan 50 mg oral tab 1 tab once daily [Active]; Coumadin 7 mg Oral once daily [Active]; omeprazole 40 mg Oral cpDR 1 cap 2 times per day [Active]; fluoxetine 10 mg oral tab 1 tabs once daily [Active]; amlodipine 10 mg tab 1 tab once daily [Active]; - PMHx: 06:35 Hypertension; PVD; lupus anticoag; blood clot in foot; reynods; scleraderma; fc - PSHx: 06:35 Appendectomy; Cholecystectomy; Hysterectomy; partial nephrectomy - right; Bladder fc suspension; - Immunization history:: Last tetanus immunization: up to date. - Social history:: Smoking status: Patient/guardian denies using tobacco, Patient/guardian denies using alcohol, street drugs. - Ebola Screening: : Patient negative for fever greater than or equal to 101.5 degrees Fahrenheit, and additional compatible Ebola Virus Disease symptoms Patient denies exposure to infectious person Patient denies travel to an Ebola-affected area in the 21 days before illness onset. ROS: 07:28 Constitutional: Negative for fever, chills, and weight loss, Cardiovascular: Negative kb for chest pain, palpitations, and edema, Respiratory: Negative for shortness of breath, cough, wheezing, and pleuritic chest pain, Abdomen/GI: Negative for abdominal pain, nausea, vomiting, diarrhea, and constipation, Skin: Negative for injury, rash, and discoloration, Neuro: Negative for headache, weakness, numbness, tingling, and seizure. 07:28 MS/extremity: Positive for pain, of the right hamstring, posterior aspect of right knee and right calf. Exam: 07:28 Constitutional: This is a well developed, well nourished patient who is awake, alert, kb and in no acute distress. Head/Face: Normocephalic, atraumatic. Chest/axilla: Normal chest wall appearance and motion. Nontender with no deformity. No lesions are appreciated. Cardiovascular: Regular rate and rhythm with a normal S1 and S2. No gallops, murmurs, or rubs. Normal PMI, no JVD. No pulse deficits. Respiratory: Lungs have equal breath sounds bilaterally, clear to auscultation and percussion. No rales, rhonchi or wheezes noted. No increased work of breathing, no retractions or nasal flaring. Abdomen/GI: Soft, non-tender, with normal bowel sounds. No distension or tympany. No guarding or rebound. No evidence of tenderness throughout. Skin: Warm, dry with normal turgor. Normal color with no rashes, no lesions, and no evidence of cellulitis. MS/ Extremity: Pulses equal, no cyanosis. Neurovascular intact. Full, normal range of motion. Neuro: Awake and alert, GCS 15, oriented to person, place, time, and situation. Cranial nerves II-XII grossly intact. Motor strength 5/5 in all extremities. Sensory grossly intact. Cerebellar exam normal. Normal gait. Vital Signs: 06:15 BP 157 / 72; Pulse 77; Resp 18; Temp 97.7(O); Pulse Ox 100% on R/A; Weight 72.57 kg fc (R); Height 5 ft. 2 in. (157.48 cm) (R); Pain 9/10; 07:00 BP 139 / 56; Pulse 66; Resp 18; Pulse Ox 99% on R/A; Pain 9/10; em 06:15 Body Mass Index 29.26 (72.57 kg, 157.48 cm) fc MDM: 06:25 Patient medically screened. kb 07:29 Data reviewed: vital signs, nurses notes. Data interpreted: Pulse oximetry: on room air kb is 100 %. Interpretation: normal. 08:12 Counseling: I had a detailed discussion with the patient and/or guardian regarding: the kb historical points, exam findings, and any diagnostic results supporting the discharge/admit diagnosis, radiology results, the need for outpatient follow up, a family practitioner, to return to the emergency department if symptoms worsen or persist or if there are any questions or concerns that arise at home. 08:14 Test interpretation: by ED physician or midlevel provider: plain radiologic studies, kb neg. 01/15 06:52 Order name: Femur Right XRAY; Complete Time: 09:16 kb 01/15 06:52 Order name: US Extremity Venous Unilateral Ltd; Complete Time: 08:29 kb Administered Medications: 06:58 Drug: Flexeril 10 mg Route: PO; jb4 08:00 Follow up: Response: No adverse reaction; Pain is decreased em 08:49 Drug: morphine 4 mg Route: IM; Site: right deltoid; em 09:10 Follow up: Response: No adverse reaction; Pain is decreased em Disposition: 01/15/19 08:13 Discharged to Home. Impression: Pain in right leg. - Condition is Stable. - Discharge Instructions: Musculoskeletal Pain. - Prescriptions for Cyclobenzaprine 10 mg Oral Tablet - take 1 tablet by ORAL route every 8 hours As needed; 21 tablet. Neurontin 300 mg Oral Capsule - take 1 capsule by ORAL route At bedtime; 10 capsule. - Medication Reconciliation Form, Thank You Letter, Antibiotic Education, Prescription Opioid Use form. - Follow up: Emergency Department; When: As needed; Reason: Worsening of condition. Follow up: Private Physician; When: 2 - 3 days; Reason: Recheck today's complaints, Continuance of care, Re-evaluation by your physician. Signatures: Dispatcher [employer] Adrienne Covarrubias, DIRECTOR CENTER-C DIRECTOR CENTER-Sunni Lala, RN RN fc Ellis Ramirez, RADIOPHONE OPERATOR RADIOPHONE OPERATOR Mark Sheridan RN RN jb4 Corrections: (The following items were deleted from the chart) 09:11 08:13 01/15/2019 08:13 Discharged to Home. Impression: Pain in right leg. Condition is em Stable. Forms are Medication Reconciliation Form, Thank You Letter, Antibiotic Education, Prescription Opioid Use. Follow up: Emergency Department; When: As needed; Reason: Worsening of condition. Follow up: Private Physician; When: 2 - 3 days; Reason: Recheck today's complaints, Continuance of care, Re-evaluation by your physician. kb
--- NOTE | 2019-01-15 08:21 | RAD REPORT ---
EXAM DESCRIPTION: US - Extremity Venous Uni Ltd - 01/15/2019 7:48 am CLINICAL HISTORY: Right leg pain and swelling COMPARISON: None. TECHNIQUE: Real-time sonographic evaluation of the right lower extremity deep venous systems was per formed. FINDINGS: Normal compressibility, flow augmentation, phasic flow and spontaneous flow are identified in the right lower extremity common femoral, superficial femoral, popliteal and posterior tibial vei ns. No intraluminal filling defects seen. IMPRESSION: No DVT in the right lower extremity.
[2019-01-15] MEDS ORDERED: MORPHINE 4 MG/ML SYR ONE (08:41)
--- NOTE | 2019-01-15 08:58 | RAD REPORT ---
EXAM DESCRIPTION: RAD - Femur Right - 01/15/2019 7:23 am CLINICAL HISTORY: Nontraumatic right hip pain COMPARISON: CT abdomen and pelvis June 2012. FINDINGS: No fracture, dislocation or periosteal reaction noted. No acute or suspicious bony finding . No AVN or focal femoral head abnormality. No pathologic bone process seen. No air or foreign body i n the soft tissues. IMPRESSION: Negative right femur examination.
[2019-01-15 09:20] VITALS: TEMP 97.7
[2019-01-15 09:22] VITALS: BP 139/56; O2SAT 99
== END 2019-01-15 09:11 | disposition home or self-care (01) ==
LOC: ER 06:10
DX: M79.604 Pain in right leg (principal); Z88.5 Allergy status to narcotic agent; I10 Essential (primary) hypertension; I73.9 Peripheral vascular disease, unspecified
CPT/HCPCS: 93971; 96372; 99284

== ENCOUNTER 2020-02-12 16:15 | Emergency (ER) | payer BC ==
--- OUTSIDE RECORDS SUMMARY | 2020-02-12 16:18 | XMS REPORT | Clinical Summary ---
:1960 Author Organization [facility] Address [address] [place] [address] Care Team Providers Name Role Phone Brayan Gallegos MD Primary Care Provider Allergies Active Allergy Reactions Severity Noted Date Comments Adhesive Rash Low 02/15/2013 Codeine Nausea And Vomiting 02/15/2013 nausea Codeine Phosphate Nausea And Vomiting 08/14/2009 Hydroxychloroquine GI Intolerance Low 04/24/2019 Phenylpropanolamin-Hydrocodone Nausea And Vomiting 09/2009 Medications Medication Sig Dispensed Refills Start End Status Date Date lidocaine-prilocaine 0 01/01/20 Active (EMLA) 2.5-2.5 % cream 18 enoxaparin (LOVENOX) Inject 0.3 mL 20 Syringe 0 05/31/20 Active 30 mg/0.3 mL syringe (30 mg total) 18 under the skin every 12 (twelve) hours. levothyroxine TK 1 T PO QD. 3 08/11/19 Ac tive (SYNTHROID, LEVOXYL) 19 75 mcg tablet methocarbamol Take 1 tablet 120 tablet 2 08/28/19 A ctive (ROBAXIN) 500 MG (500 mg 20 020 tablet total) by mouth 4 (four) times a day for 180 days. FLUoxetine (PROzac) 10 TAKE 1 TABLET 90 tablet 1 09/25/19 Active MG tablet BY MOUTH 20 DAILY. losartan (COZAAR) 50 TAKE 1 TABLET 90 tablet 3 09/25/19 Active MG tablet BY MOUTH 20 EVERY DAY amLODIPine (NORVASC) TAKE 1 TABLET 30 tablet 3 11/01/19 Active 10 mg tablet BY MOUTH 20 EVERY DAY. warfarin (COUMADIN) 1 TAKE 4 364 tablet 0 05/13/20 Active MG tablet TABLETS BY 20 MOUTH EVERY DAY DIRECTED. warfarin (COUMADIN) 5 TAKE 1 TABLET 90 tablet 1 12/28/19 Active MG tablet BY MOUTH 20 DAILY. pantoprazole Take 1 tablet 60 tablet 5 01/03/20 Act jeff (PROTONIX) 40 MG EC (40 mg total) 20 tablet by mouth 2 (two) times a day. gabapentin (NEURONTIN) TAKE 1 90 capsule 3 01/19/20 Active 300 mg capsule CAPSULE BY 20 021 MOUTH EVERY NIGHT AT BEDTIME sildenafil, for TAKE 1 TABLET 90 tablet 0 01/30/20 Active pulmonary BY MOUTH 20 hypertersion, THREE TIMES (REVATIO) 20 mg tablet DAILY atorvastatin (LIPITOR) Take 20 mg by 5 03/15/2028/08 Discontinued 20 MG tablet mouth daily. 16 020 (The rapy completed) ranitidine (ZANTAC) Take 150 mg 0 Discontinued 150 MG tablet by mouth 020 (Thera py nightly. completed) diclofenac (VOLTAREN) Apply 3 Tube 1 05/11/20 Discontinued 1 % gel topically 4 020 (Therapy (four) times complet ed) a day. nitroglycerin Place 0.3 30 g 5 05/11/20 Discon tinued (NITROSTAT) 2 % inches on the 18 019 ointment skin 3 (three) times a day. Apply to affected digit(s) amLODIPine (NORVASC) TAKE 1 TABLET 90 tablet 0 06/01/2006/29 Discontinued 10 mg tablet BY MOUTH 18 019 DAILY warfarin (COUMADIN) 1 TAKE 4 364 tablet 0 06/20/20 Discontinued MG tablet TABLETS BY 18 019 (Reorder) MOUTH EVERY DAY DIRECTED sildenafil, TAKE 1 TABLET 90 tablet 09/22/19 Disc ontinued antihypertensive, BY MOUTH 020 (REVATIO) 20 mg tablet THREE TIMES DAILY warfarin (COUMADIN) 5 TAKE 1 TABLET 90 tablet 1 09/28/1903/13 2/2 Discontinued MG tablet BY MOUTH 19 019 (Reorder) EVERY DAY omeprazole (PriLOSEC) TAKE 1 180 capsule 3 10/25/19 Discontinued 40 MG capsule CAPSULE BY 19 020 MOUTH TWICE DAILY losartan (COZAAR) 50 TAKE 1 TABLET 90 tablet 3 12/13/1909/24 Discontinued MG tablet BY MOUTH 19 020 EVERY DAY. FLUoxetine (PROzac) 10 TAKE 1 TABLET 90 tablet 0 12/29/1902/09 Discontinued MG tablet BY MOUTH 19 019 (Reorder) DAILY HYDROcodone-acetaminop Take 1 tablet 30 tablet 0 01/20/2004/12 hen (NORCO) 10-325 mg by mouth 19 019 per tablet every 6 (six) hours as needed for moderate pain for up to 30 days. Max Daily Amount: 4 tablets gabapentin (NEURONTIN) TAKE 1 90 capsule 3 01/20/20 Discontinued 300 mg capsule CAPSULE BY 19 020 MOUTH EVERY NIGHT AT BEDTIME. warfarin (COUMADIN) 5 TAKE 1 TABLET 90 tablet 0 04/02/2006/11 Discontinued MG tablet BY MOUTH 19 019 (Reorder) EVERY DAY FLUoxetine (PROzac) 10 TAKE 1 TABLET 90 tablet 0 04/03/2030/08 Discontinued MG tablet BY MOUTH 19 019 (Reorder) DAILY methylPREDNISolone Take all 21 tablet 0 04/06/20 E xpired (MEDROL DOSEPAK) 4 mg tablets in 19 019 tablet the morning on each row. 6 day 1, 5 day 2, etc. Do not space out over the day. warfarin (COUMADIN) 1 TAKE 4 364 tablet 0 05/02/20 Discontinued MG tablet TABLETS BY 19 020 MOUTH EVERY DAY DIRECTED. amLODIPine (NORVASC) TAKE 1 TABLET 30 tablet 3 06/29/2010/31 Discontinued 10 mg tablet BY MOUTH 19 020 DAILY warfarin (COUMADIN) 5 Take 1 tablet 90 tablet 1 06/29/2012/102 Discontinued MG tablet (5 mg total) 19 020 by mouth daily. Take 1 tablet (5mg) by mouth daily for 30 days. FLUoxetine (PROzac) 10 Take 1 tablet 90 tablet 0 06/29/2027/08 Discontinued MG tablet (10 mg total) 19 020 by mouth daily. cephalexin (KEFLEX) Take 1 21 capsule 0 08/28/19 500 MG capsule capsule (500 20 020 mg total) by mouth 3 (three) times a day for 7 days. clindamycin (Cleocin Take 1 40 capsule 0 09/06/19 HCL) 300 MG capsule capsule (300 20 020 mg total) by mouth 4 (four) times a day for 7 days. sildenafil, for TAKE 1 TABLET 90 tablet 3 09/22/19 Discontinued pulmonary BY MOUTH 20 020 hypertersion, THREE TIMES (REVATIO) 20 mg tablet DAILY omeprazole (PriLOSEC) TAKE 1 180 capsule 3 10/23/19 Discontinued 40 MG capsule CAPSULE BY 20 020 MOUTH TWICE DAILY Active Problems Problem Noted Date Lupus anticoagulant disorder 04/24/2019 Ischemic ulcer of finger with fat layer exposed 2017 Raynaud disease 12/28/2017 Chronic diarrhea 09/22/2017 Lower [...] 12/18/2015 Overview: Removed 2010 Renal stones 12/18/2015 Encounters Date Type Specialty Care Team Description 01/30/2020 Refill Rheumatology Maris Morejon MD 01/18/2020 Refill Rheumatology Maris Morejon MD 01/05/2020 Orders Only Rheumatology Maris Morejon MD 01/03/2020 Office Visit Rheumatology Maris Morejon CREST syndro pr ([facility]) (Primary Dx); Gastroesophageiván l reflux disease with esophagitis; Immunosuppresse d status ([facility]); High risk medic ation use; Anticoagulant l peter-term use; Renal insuffici ency 01/03/2020 Travel 12/28/2019 Refill Rheumatology Maris Morejon MD 11/21/2019 Refill Rheumatology Maris Morejon MD 11/01/2019 Refill Rheumatology Maris Morejon MD 10/22/2019 Refill Rheumatology Maris Morejon MD 09/25/2019 Refill Rheumatology Maris Morejon MD 09/22/2019 Refill Rheumatology Maris Morejon MD 09/12/2019 Orders Only Rheumatology Diana Rico MD 09/06/2019 Orders Only Rheumatology Maris Morejon, Cellulitis o f finger of right MD hand (Primary D x) 09/06/2019 Telephone Rheumatology [place]mahon [place] 08/30/2019 Orders Only Rheumatology Diana Rico MD 08/28/2019 Office Visit Rheumatology Maris Morejon CREST syndro me (HCC) (Primary Dx); High risk medic ation use; Cellulitis of f [place] of right hand; Flank pain; Raynaud's disea se without gangrene; Lupus anticoagu lant disorder (HCC); Ischemic ulcer of finger with fat layer exposed (HCC) 08/18/2019 Telephone [place]ology [place] 06/29/[facility] [place] [facility] [place] Edwin Mcmahon [place] 06/28/2019 Refill Rheumatology Maris Morejon MD 05/01/2019 Refill Rheumatology Maris Morejon MD 04/29/2019 Orders Only Rheumatology Maris Morejon, Anemia, unsp ecified type MD (Primary Dx) 04/24/2019 Office Visit Rheumatology Maris Morejon CREST syndro me ([facility]) (Primary Dx); Lupus anticoagu lant disorder ([facility]); Anticoagulant l peter-term use; High risk medic ation use; Sjogren's syndr ome with keratoconjunctivitis sicca (HCC) 04/18/2019 Telephone Rheumatology Liza Foster MA 04/05/2019 Telephone Rheumatology Liza Foster MA 04/02/2019 Refill Rheumatology Tanya Mabry DO 04/02/2019 Refill Rheumatology Maris Morejon MD after 02/11/2019 Family History Medical History Relation Name Comments Cancer Other aunt stomach ca Other Other niece abdominal desmoi d tumor Lupus Other niece antiocoagulant Diabetes Sister Rheum arthritis Sister bhavin owusu +ccp Relation Name Status Comments Other aunt Other Other niece Other Other niece Other Sister Sister bhavin owusu Alive Social History Tobacco Use Types Packs/Day Years Used Date Never Smoker Smokeless Tobacco: Never Used Alcohol Use Drinks/Week oz/Week Comments Yes 1-2 Cans of beer 1.0 - 2.0 1-2 per month Sex Assigned at Date Recorded Not on file Job Start Date Occupation Industry Not on file Not on file Not on file Travel History Travel Start Travel End No recent travel history available. Last Filed Vital Signs Vital Sign Reading Time Taken Comments Blood Pressure 123/68 01/03/2020 3:06 PM CDT Pulse 80 01/03/2020 3:06 PM CDT Temperature 36.9 C (98.4 F) 01/03/2020 3:06 PM CDT Respiratory Rate 18 08/28/2019 2:04 PM ENVIRONMENTAL INSPECTOR Oxygen Saturation 99% 01/03/2020 3:06 PM CDT Inhaled Oxygen Concentration - - Weight 73.9 kg (163 lb) 01/03/2020 3:06 PM CDT Height 157.5 cm (5' 2") 01/03/2020 3:06 PM CDT Body Mass Index 29.81 01/03/2020 3:06 PM CDT Plan of Treatment Health Maintenance Due Date Last Done Comments CERVICAL CANCER SCREENING 1981 BREAST CANCER SCREENING 2010 COLONOSCOPY SCREENING 2010 SHINGLES VACCINES (#1) 2010 INFLUENZA VACCINE 02/10/2020 Procedures Procedure Name Priority Date/Time Associated Diagnosis Comme nts MICROSCOPIC Routine 01/03/2020 3:48 Results for this EXAMINATION PM CDT procedure are i n the results section. PROTHROMBIN TIME WITH Routine 01/03/2020 3:48 Anticoagulant R esults for this INR PM CDT long-term use procedure are in the results section. URINALYSIS, AUTOMATED Routine 01/03/2020 3:48 CREST syndrome (HCC) Results for this WITH MICROSCOPY PM CDT procedure ar e in the results section. C-REACTIVE PROTEIN Routine 01/03/2020 3:48 CREST syndrome (HC C) Results for this PM CDT procedure are i n the results section. SEDIMENTATION RATE Routine 01/03/2020 3:48 CREST syndrome (HC C) Results for this PM CDT procedure are i n the results section. COMPREHENSIVE Routine 01/03/2020 3:48 CREST syndrome (HCC) Re sults for this METABOLIC PANEL PM CDT procedure ar e in the results section. CBC WITH PLATELET AND Routine 01/03/2020 3:48 CREST syndrome (HCC) Results for this DIFFERENTIAL PM CDT procedure are i n the results section. XR HAND 3+ VW RIGHT Routine 09/07/2019 URINE CULTURE Routine 08/28/2019 3:13 Flank pain Results fo r this PM ENVIRONMENTAL INSPECTOR procedure are i n the results section. MICROSCOPIC Routine 08/28/2019 2:59 Results for this EXAMINATION PM ENVIRONMENTAL INSPECTOR procedure are i n the results section. URINE Routine 08/28/2019 2:59 CREST syndrome (HCC) Res ults for this PROTEIN/CREATININE PM ENVIRONMENTAL INSPECTOR procedure are in RATIO, RANDOM the results section. URINALYSIS, AUTOMATED Routine 08/28/2019 2:59 CREST syndrome (HCC) Results for this WITH MICROSCOPY PM ENVIRONMENTAL INSPECTOR procedure ar e in the results section. COMPREHENSIVE Routine 08/28/2019 2:59 CREST syndrome (HCC) Re sults for this METABOLIC PANEL PM ENVIRONMENTAL INSPECTOR procedure ar e in the results section. [id number] Routine 07/25/2019 MICROSCOPIC Routine 04/24/2019 2:56 Results for this EXAMINATION PM CDT procedure are i n the results section. URINALYSIS, AUTOMATED Routine 04/24/2019 2:56 CREST syndrome (HCC) Results for this WITH MICROSCOPY PM CDT procedure ar e in the results section. C-REACTIVE PROTEIN Routine 04/24/2019 2:56 CREST syndrome (HC C) Results for this PM CDT procedure are i n the results section. SEDIMENTATION RATE Routine 04/24/2019 2:56 CREST syndrome (HC C) Results for this PM CDT procedure are i n the results section. COMPREHENSIVE Routine 04/24/2019 2:56 CREST syndrome (HCC) Re sults for this METABOLIC PANEL PM CDT procedure ar e in the results section. CBC WITH PLATELET AND Routine 04/24/2019 2:56 CREST syndrome (HCC) Results for this DIFFERENTIAL PM CDT procedure are i n the results section. PROTHROMBIN TIME WITH Routine 04/24/2019 2:56 Anticoagulant R esults for this INR PM CDT long-term use procedure are in the results section. after 02/11/2019 Results Microscopic Examination (01/03/2020 3:48 PM CDT)Only the most recent of3 resultswithin the time period is included. Pathologist Sig nature WBC, UA 0-5 0 - 5 /hpf [facility] RBC, UA 0-2 0 - 2 /hpf [facility] Epithelial cells (non 0-10 0 - 10 /hpf [facility] renal) Mucus, UA Present Not Estab. [facility] Bacteria, UA None seen None seen/Few [facility] Specimen Narrative Performed At Performed at: [address] [place] [address] [facility] [address] [place] [id number]: Matthew Buckner MD, Phone: [phone] Performing Organization Address [facility] Phone Number [facility] Urinalysis, automated with microscopy (01/03/2020 3:48 PM CDT)Only the most recent of3 resultswithin the time period is included. Pathologist [facility] Specific gravity, 1.018 1.005 - 1.030 [facility] urine pH, urine [...] performed. Specimen Urine Narrative Performed At Performed at: [address] [place] [address] [id number] [address]: Matthew Buckner MD, Phone: [phone] Performing Organization Address [facility] Phone Number [facility] Sedimentation rate (01/03/2020 3:48 PM CDT)Only the most recent of2 results within the time period is included. Pathologist [facility] nature Sedimentation rate 12 0 - 40 mm/hr [facility] Specimen Blood Narrative Performed At Performed at: [address] [place] [address] [id number] [address]: Matthew Buckner MD, Phone: [phone] Performing Organization Address [facility] Phone Number [facility] Prothrombin time with INR (01/03/2020 3:48 PM CDT)Only the most recent of2 resultswithin the time period is included. Pathologist [facility] INR 3.0 (H) 0.8 - 1.2 [facility] Comment: Reference interval is for non-anticoagulated patients. Suggested INR therapeutic range for Vitamin K antagonist therapy: Standard Dose (moderate intensity therapeutic range): 2.0 - 3.0 Higher intensity therapeutic range 2.5 - 3.5 Prothrombin time 30.3 (H) 9.1 - 12.0 sec [facility] Specimen Blood Narrative Performed At Performed at: 01 - [facility] [address] [place], [place] [address] [address]: Matthew Buckner MD, Phone: [phone] Performing Organization Address City/State/Zipcode Phone Number [facility] CBC with platelet and differential (01/03/2020 3:48 PM CDT)Only the most recent of2 resultswithin the time period is included. [employer] Sig nature WBC 6.9 3.4 - 10.8 x10E3/uL [facility] RBC 4.10 3.77 - 5.28 x10E6/uL [facility] HGB 12.5 11.1 - 15.9 g/dL [facility] HCT 37.2 34.0 - 46.6 % [facility] MCV 91 79 - 97 fL [facility] MCH 30.5 26.6 - 33.0 pg [facility] MCHC 33.6 31.5 - 35.7 g/dL [facility] RDW 15.0 11.7 - 15.4 % [facility] Platelet count 190 150 - 450 x10E3/uL [facility] Neutrophils 72 Not Estab. % [facility] Lymphocytes 14 Not Estab. % [facility] Monocytes 11 Not Estab. % [facility] Eosinophils 2 Not Estab. % [facility] Basophils 1 Not Estab. % [facility] Neutrophils, absolute 5.0 1.4 - 7.0 x10E3/uL [facility] Lymphocytes, absolute 0.9 0.7 - 3.1 x10E3/uL [facility] Monocytes, absolute 0.7 0.1 - 0.9 x10E3/uL [facility] Eosinophils, absolute 0.1 0.0 - 0.4 x10E3/uL [facility] Basophils, absolute 0.0 0.0 - 0.2 x10E3/uL [facility] Immature granulocytes 0 Not Estab. % [facility] Immature grans (abs) 0.0 0.0 - 0.1 x10E3/uL [facility] Specimen Blood Narrative Performed At Performed at: [facility] [address] [place], [place] [address] [address]: Matthew Buckner MD, Phone: [phone] Performing Organization Address [facility] Phone Number [facility] C-reactive protein (01/03/2020 3:48 PM CDT)Only the most recent of2 results within the time period is included. Pathologist Sig [facility] CRP 7 0 - 10 mg/L [facility] Specimen Blood Narrative Performed At [facility]formed at: [facility] [address] [place], [place] [address] [address]: Matthew Buckner MD, Phone: [phone] Performing Organization Address [facility] Phone Number [facility] Comprehensive metabolic panel (01/03/2020 3:48 PM CDT)Only the most recent of3 resultswithin the time period is included. Pathologist Sig [facility] Glucose 127 (H) 65 - 99 mg/dL [facility] BUN 15 6 - 24 mg/dL [facility] Creatinine 1.33 (H) 0.57 - 1.00 mg/dL [facility] EGFR Non-Afr. Malaysian 44 (L) >59 mL/min/1.73 [facility] EGFR 50 (L) >59 mL/min/1.73 [facility] BUN/creatinine ratio 11 9 - 23 [facility] Sodium 143 134 - 144 mmol/L [facility] Potassium 4.4 3.5 - 5.2 mmol/L [facility] Chloride 108 (H) 96 - 106 mmol/L [facility] CO2 21 20 - 29 mmol/L [facility] Calcium 9.1 8.7 - 10.2 mg/dL [facility] Protein 6.4 6.0 - 8.5 g/dL [facility] Albumin, S 4.2 3.8 - 4.9 g/dL [facility] Globulin, total 2.2 1.5 - 4.5 g/dL [facility] Albumin/globulin ratio 1.9 1.2 - 2.2 [facility] Total bilirubin 0.3 0.0 - 1.2 mg/dL [facility] Alkaline phosphatase 110 39 - 117 IU/L [facility] AST 24 0 - 40 IU/L [facility] ALT 31 0 - 32 IU/L [facility] Specimen Blood Narrative Performed At Performed at: [facility] [place] [facility] [place], [place] [id number] [address]: Matthew Buckner MD, Phone: [phone] Performing Organization Address [facility] Phone Number [facility] XR Hand 3+ Vw Right (09/07/2019) Narrative Performed At This result has an attachment that is no t available. Urine culture (08/28/2019 3:13 PM ENVIRONMENTAL INSPECTOR) Pathologist Sig nature Urine culture No growth [facility] Specimen Urine Narrative Performed At Performed at: [facility] [place] [facility] [place], [place] [address] [address]: Matthew Buckner MD, Phone: [phone] Performing Organization Address [facility] Phone Number [facility] Urine protein/creatinine ratio, random (08/28/2019 2:59 PM ENVIRONMENTAL INSPECTOR) Pathologist Sig nature Creatinine, urine, random 138.5 Not Estab. mg/dL [facility] Protein, urine 17.6 Not Estab. mg/dL [facility] Protein/Creat Ratio 127 0 - 200 mg/g creat [facility] Specimen Urine Narrative Performed At Performed at: [facility] [place], [place] [id number] [address]: Matthew Buckner MD, Phone: [phone] Performing Organization Address [facility] Phone Number [facility] Miscellaneous Lab Result (07/25/2019) Specimen Blood Narrative Performed At This result has an attachment that is no t available. 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
--- OUTSIDE RECORDS SUMMARY | 2020-02-12 16:18 | XMS REPORT | Continuity of Care Document ---
:1960 Author Organization [facility] t Address [address] [place] [address] Care Team Providers Name Role Phone El PÉREZ, Brayan Primary Care Physician Darleen PÉREZ Attending Clinician Provider Attending Clinician Lisandro NEAL Attending Clinician Unavailable Cristian NEAL Attending Clinician Unavailable Clotilde SANTILLAN Attending Clinician Payers Payer Name Policy Type Policy Number Effective Date Expiration Date S lorie BCBSBCBS xxxxxxxxxxxx 2015 [place] CHOICE 00:00:00 Orthodox PPO/FEDERAL EMPL PPOxxxxxxxxxxx 2015-Pres entPPO Problems Condition Condition Condition Status Onset Resolution Last Treating Co mments Source Name Details Category Date Date Treatment Clinician Date Lupus Lupus Disease Active 2018-07 [place] anticoagul anticoagul 0-14 Me thodi ant ant 00:00: st disorder disorder 00 Ischemic Ischemic Disease Active [place] ulcer of ulcer of 918 Method i finger finger 00:00: st with fat with fat 00 layer layer exposed exposed Raynaud Raynaud Disease Active [place] disease disease 6-19 Methodi 00:00: st 00 Chronic Chronic Disease Active [place] diarrhea diarrhea 3-14 Method i 00:00: st 00 Lower Lower Disease Active [place] abdominal abdominal 3-14 Meth meghan pain pain 00:00: st 00 Plantar Plantar Disease Active 2016-07 [place] fasciitis fasciitis 1-14 Meth meghan of left of left 00:00: st foot foot 00 Entrapment Entrapment Disease Active [place] of right of right 3-09 Method i ulnar ulnar 00:00: st nerve nerve 00 Pain of Pain of Disease Active [place] left heel left heel 3 Meth meghan 00:00: st 00 CREST CREST 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 [place] syndrome syndrome 1-16 Method i 00:00: st 00 Carpal Carpal 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 [place] tunnel tunnel 1-16 [facility] syndrome, syndrome, 00:00: st left left 00 Carpal Carpal 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 [place] tunnel tunnel 1-16 [facility] syndrome syndrome 00:00: st of right of right 00 wrist wrist GERD GERD Disease Active [place] (gastroeso (gastroeso 12-17 Me thodi phageal phageal 00:00: st reflux reflux 00 disease) disease) Other Other Disease Active Overview: 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 [facility] systemic systemic 00:00: lant st 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 Raynaud's Raynaud's Disease Active Shannon ston disease disease 12-17 Methodi with with 00:00: st gangrene gangrene 00 Sjogren's Sjogren's Disease Active Shannon ston syndrome syndrome 12-17 Method i 00:00: st 00 Small Small Disease Active [place] bowel bowel 12-17 Methodi telangecta telangecta 00:00: st radha radha 00 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 Meth meghan disease disease 00:00: with st 00 lumbar MRI Renal cell Renal cell Disease Active Overview : [place] carcinoma carcinoma 12-17 Removed Met hodi 00:00: 2010 st 00 Renal Renal Disease Active [place] stones stones 12-17 Methodi 00:00: st 00 Allergies, Adverse Reactions, Alerts Allergy Allergy Status Severity Reaction(s) Onset Inactive Treating Comm ents Source Name Type Date Date Clinician Hydroxyc Propensi Active GI 2018-07 [place] h[place] ty to Intolerance 0-14 Met hodi ne adverse 00:00: st reaction 00 s to drug Adhesive Propensi Active Rash [place] ty to 8-07 [facility] adverse 00:00: st reaction 00 s to drug Codeine Propensi Active Nausea And nausea Shannon ston ty to Vomiting 807 Methodi adverse 00:00: st reaction 00 s to drug Codeine Propensi Active Nausea And [place] ston Phosphat ty to Vomiting 2-03 Method i e adverse 00:00: st reaction 00 s to drug Phenylpr Propensi Active Nausea And Ho usrenate opanolam ty to Vomiting 203 Method i [place] adverse 00:00: st codone reaction 00 s to drug Family History Family Member Diagnosis Comments Start Date Stop Date Source Other Cancer [place] Method ist Other Other [place] Method ist Other Lupus [place] Method ist Natural sister Diabetes [facility] thodist Natural sister Rheum arthritis [place] [facility] Social History Social Habit Start Date Stop Date Quantity Comments Source Sex Assigned At [facility] ethodist Alcohol intake 2020-01-03 2020-01-03 Current drinker [place] [facility] 00:00:00 00:00:00 of alcohol (finding) Alcohol Comment 2016-05-27 2016-05-27 1-2 per month [place] [facility] 00:00:00 00:00:00 Smoking Status Start Date Stop Date Source Never smoker [place] Methodis t Medications Ordered Filled Start Stop Current Ordering Indication Dosage Frequency Signature Comments Components Source Medication Medication Date Date Medication? Clinician (SIG) Name Name sildenafil, Yes TAKE 1 [place] for 7-21 TABLET BY [facility] pulmonary 00:00: MOUTH st hypertersio 00 THREE n, TIMES (REVATIO) DAILY 20 mg tablet gabapentin 2020- Yes TAKE 1 [place] (NEURONTIN) 7-10 07-11 CAPSULE BY Jen pfeifferodi 300 mg 00:00: 23:[address] capsule 00 :00 EVERY NIGHT AT BEDTIME ranitidine 2019-0 2020- No 150mg QD Take 150 [place] (ZANTAC) 6-24 06-24 mg by Methodi 150 MG 15:08: 00:[address] tablet 47 :00 nightly. pantoprazol Yes 40mg Q.5D Take 1 [place] e 6-24 tablet (40 [facility] (PROTONIX) 00:00: mg total) st 40 MG EC 00 by mouth 2 tablet (two) times a day. warfarin Yes TAKE 1 [place] (COUMADIN) 6-18 TABLET BY Meth meghan 5 MG tablet 00:00: MOUTH st 00 DAILY. warfarin 2019- Yes TAKE 4 [place] (COUMADIN) 5-13 TABLETS BY Met hodi 1 MG tablet 00:00: MOUTH st 00 EVERY DAY DIRECTED. amLODIPine Yes TAKE 1 [place] (NORVASC) 4-22 TABLET BY Metho di 10 mg 00:00: MOUTH st tablet 00 EVERY DAY. omeprazole 2019- No TAKE 1 [place] (PriLOSEC) 4-13 06-24 CAPSULE BY Me thodi 40 MG 00:00: 00:[address] capsule 00 :00 TWICE DAILY FLUoxetine Yes TAKE 1 [place] (PROzac) 10 3-16 TABLET BY Met hodi MG tablet 00:00: MOUTH st 00 DAILY. losartan Yes TAKE 1 [place] (COZAAR) 50 3-16 TABLET BY Met hodi MG tablet 00:00: MOUTH st 00 EVERY DAY sildenafil, 2020- No TAKE 1 Shannon ston for 3-13 07-21 TABLET BY Method[facility] pulmonary 00:00: 00:[address] hypertersio 00 :00 THREE n, TIMES (REVATIO) DAILY 20 mg tablet clindamycin 2019- No 300mg Q.25D Take 1 [place] (Cleocin 2-26 03-04 capsule Methodi HCL) 300 MG 00:00: 23:59 ([address] capsule 00 :00 total) by mouth 4 (four) times a day for 7 days. methocarbam 2019- No 500mg Q.25D Take 1 [place] ol 2-17 08-15 tablet Methodi (ROBAXIN) 00:00: 23:59 ([address] 500 MG 00 :00 total) by tablet mouth 4 (four) times a day for 180 days. cephalexin 2019- No 500mg Q.[id number] Take 1 [place] (KEFLEX) 2-17 02-24 [id number] capsule M ethodi 500 MG 00:00: 23:59 3D ([address] capsule 00 :00 total) by mouth 3 (three) times a day for 7 days. warfarin 2018-07- No 5mg QD Take 1 [place] (COUMADIN) 2-19 06-18 tablet (5 Met hodi 5 MG tablet 00:00: 00:00 mg total) st 00 :00 by mouth daily. Take 1 tablet (5mg) by mouth daily for 30 days. amLODIPine 2018-07 TAKE 1 [place] (NORVASC) 08-30- TABLET BY Meth meghan 10 mg 00:00: 00:[address] tablet 00 :00 DAILY FLUoxetine 2018-07 10mg QD Take 1 [place] (PROzac) 10 08-30-16 tablet (10 M ethodi MG tablet 00:00: 00:00 mg total) st 00 :00 by mouth daily. warfarin 2018-07 TAKE 4 [place] (COUMADIN) 0- 05-13 TABLETS BY Me thodi 1 MG tablet 00:00: 00:[address] 00 :00 EVERY DAY DIRECTED. methylPREDN Take all [place] ISolone 04-06 10-03 tablets in Metho di (MEDROL 00:00: 23:[address] DOSEPAK) 4 00 :00 morning on mg tablet each row. 6 day 1, 5 day 2, etc. Do not space out over the day. FLUoxetine TAKE 1 [place] (PROzac) 10 04-03 TABLET BY Me thodi MG tablet 00:00: 00:[address] 00 :00 DAILY warfarin TAKE 1 [place] (COUMADIN) 04-02 TABLET BY Met hodi 5 MG tablet 00:00: 00:[address] 00 :00 EVERY DAY gabapentin 2019- TAKE 1 [place] (NEURONTIN) 7-11 07-10 CAPSULE BY M ethodi 300 mg 00:00: 00:[address] capsule 00 :00 EVERY NIGHT AT BEDTIME. HYDROcodone 1{tbl} Q6H Take 1 [place] -acetaminop 7-11 08-10 tablet by Me thodi hen (NORCO) 00:00: 23:[address] 10-325 mg 00 :00 every 6 per tablet (six) hours as needed for moderate pain for up to 30 days. Max Daily Amount: 4 tablets FLUoxetine 2018- No TAKE 1 [place] (PROzac) 10 -30 03-22 TABLET BY Me thodi MG tablet 00:00: 00:[address] 00 :00 DAILY losartan 2019- TAKE 1 [place] (COZAAR) 50 6-03 03-16 TABLET BY Me thodi MG tablet 00:00: 00:[address] 00 :00 EVERY DAY. omeprazole 2019- No TAKE 1 [place] (PriLOSEC) 4-15 04-13 CAPSULE BY Tn thodi 40 MG 00:00: 00:[address] capsule 00 :00 TWICE DAILY warfarin 2018- No TAKE 1 [place] (COUMADIN) 3-19 09-22 TABLET BY Met hodi 5 MG tablet 00:00: 00:[address] 00 :00 EVERY DAY sildenafil, 2019- No TAKE 1 Shannon ely antihyperte 3-13 03-13 TABLET BY Tn thodi nsive, 00:00: 00:[address] (REVATIO) 00 :00 THREE 20 mg TIMES tablet DAILY levothyroxi Yes TK 1 T PO [place] ne 1-31 QD. Methodi (SYNTHROID, 00:00: st LEVOXYL) 75 00 mcg tablet warfarin 2017-07- No TAKE 4 [place] (COUMADIN) 2-10 10-21 TABLETS BY Tn thodi 1 MG tablet 00:00: 00:[address] 00 :00 EVERY DAY DIRECTED amLODIPine 2017-07- No TAKE 1 [place] (NORVASC) 1-21 12-19 TABLET BY Meth meghan 10 mg 00:00: 00:[address] tablet 00 :00 DAILY enoxaparin 2017-07 Yes 30mg Q12H Inject 0.3 [place] (LOVENOX) 1-20 mL (30 mg Metho di 30 mg/0.3 00:00: total) st mL syringe 00 under the skin every 12 (twelve) hours. diclofenac 2017-07- No Q.25D Apply [place] (VOLTAREN) 0-31 02-17 topically Met hodi 1 % gel 00:00: 00:00 4 (four) st 00 :00 times a day. nitroglycer 2017-07- No .3[in_u Q.[id number] Place 0.3 [place]andra in 0-31 10-14 s] [id number] inches on Met hodi (NITROSTAT) 00:00: 00:00 3D the skin 3 st 2 % 00 :00 (three) ointment times a day. Apply to affected digit(s) lidocaine-p Yes [place] rilocaine 6-22 Method[facility] (EMLA) 00:00: st 2.5-2.5 % 00 cream atorvastati 2020- No 20mg QD Take 20 mg Prateek pizano (LIPITOR) 03-15 by mouth Met hodi 20 MG 00:00: 00:[address] tablet 00 :00 Vital Signs Vital Name Observation Time Observation Value Comments Source Systolic blood 2020-01-03 15:06:00 123 mm[Hg] [place] [facility] pressure Diastolic blood 2020-01-03 15:06:00 68 mm[Hg] [place] [facility] pressure Heart rate 2020-01-03 15:06:00 80 /min Prateek Kaur Body temperature 2020-01-03 15:06:00 36.89 Isabel Vicky Kaur Body height 2020-01-03 15:06:00 157.5 cm Prateek Kaur Body weight 2020-01-03 15:06:00 73.936 kg Prateek Kaur BMI 2020-01-03 15:06:00 29.81 kg/m2 Prateek Kaur Oxygen saturation in 2020-01-03 15:06:00 99 /min Prateek Kaur Arterial blood by Pulse oximetry Respiratory rate 2019-08-28 14:04:00 18 /min Vicky Kaur Procedures Procedure Date / Time Performed Performing Clinician [facility] e CBC WITH PLATELET AND 2020-01-03 15:48:00 Michele Morejon DIFFERENTIAL COMPREHENSIVE METABOLIC 2020-01-03 15:48:00 Michele Morejon PANEL SEDIMENTATION RATE 2020-01-03 15:48:00 Michele Morejon ethodist C-REACTIVE PROTEIN 2020-01-03 15:48:00 Michele Morejon ethodist URINALYSIS, AUTOMATED 2020-01-03 15:48:00 Michele Morejon WITH MICROSCOPY PROTHROMBIN TIME WITH INR 2020-01-03 15:48:00 Michele Morejon MICROSCOPIC EXAMINATION 2020-01-03 15:48:00 Michele Morejon XR HAND 3+ VW RIGHT 2019-09-07 00:00:00 Provider, Diana Kaur URINE CULTURE 2019-08-28 15:13:00 Michele Morejon Meth odist COMPREHENSIVE METABOLIC 2019-08-28 14:59:00 Michele Morejon PANEL URINALYSIS, AUTOMATED 2019-08-28 14:59:00 Michele Morejon WITH MICROSCOPY URINE PROTEIN/CREATININE 2019-08-28 14:59:00 Michele Morejon ston [facility] RATIO, RANDOM MICROSCOPIC EXAMINATION 2019-08-28 14:59:00 Michele Morejon [id number] 2019-07-25 00:00:00 Provider, Diana Kaur PROTHROMBIN TIME WITH INR 2019-04-24 14:56:00 Michele Morejon CBC WITH PLATELET AND 2019-04-24 14:56:00 Michele Morejon DIFFERENTIAL COMPREHENSIVE METABOLIC 2019-04-24 14:56:00 Michele Morejon PANEL SEDIMENTATION RATE 2019-04-24 14:56:00 Michele Morejon ethodist C-REACTIVE PROTEIN 2019-04-24 14:56:00 Michele Morejon ethodist URINALYSIS, AUTOMATED 2019-04-24 14:56:00 Michele Morejon WITH MICROSCOPY MICROSCOPIC EXAMINATION 2019-04-24 14:56:00 Michele Morejon Plan of Care Planned Activity Planned Date Details Comments Source Future Scheduled 2020-02-10 INFLUENZA VACCINE [place] [facility] Test 00:00:00 [code = INFLUENZA VACCINE] Future Scheduled 2010 BREAST CANCER [facility] thodist Test 00:00:00 SCREENING [code = BREAST CANCER SCREENING] Future Scheduled 2010 COLONOSCOPY SCREENING Tomas Kaur Test 00:00:00 [code = COLONOSCOPY SCREENING] Future Scheduled 2010 SHINGLES VACCINES [place] [facility] Test 00:00:00 (#1) [code = SHINGLES VACCINES (#1)] Future Scheduled 1981 Screening for [facility] thodist Test 00:00:00 malignant neoplasm of cervix (procedure) [code = 912619428] Encounters Start End Encounter Admission Attending Care Care Encounter Source Date/Time Date/Time Type Type Clinicians Facility Department ID 2020-01-03 2020-01-03 Outpatient [facility] [id number] [place] 00:00:00 00:00:00 MICHELE [address] Results Test Description Test Time Test Comments Results Result Comments Source Urinalysis, automated with microscopy 2020-01-04 16:11:00 Test Item Value Reference Range Interpretation Comme nts Specific gravity, urine 1.018 1.005-1.030 (test code = 2965-2) pH, urine (test code = 5.0 5.0-7.5 5803-2) Color, UA (test code = Yellow Yellow 5778-6) Appearance (test code = Clear Clear 5767-9) WBC esterase, urine Negative Negative (test code = 5799-2) Protein, UA (test code Negative Negative/Trace = 11496-5) Glucose, urine (test Negative Negative code = 2349-9) Ketones, UA (test code Negative Negative = 2514-8) Occult blood, urine Negative Negative (test code = 5794-3) Bilirubin, UA (test Negative Negative code = 5770-3) Urobilinogen, UA (test 0.2 mg/dL 0.2-1 code = 78405-1) Nitrite, UA (test code Negative Negative = 5802-4) Microscopic examination See below: Micr oscopic was (test code = 60335-0) indica enedelia and was performed. ALIS (test code = ALIS) Performed at: [address] [place] [address] [id number] Director: Matthew Buckner MD, Phone: [phone] [place] MethodistMicroscopic [id number] 16:11:00 Test Item Value Reference Range Interpretation Comments WBC, UA (test code = 0-5 0- 5 /hpf 5821-4) RBC, UA (test code = 0-2 0- 2 /hpf 37097-8) Epithelial cells (non 0-10 0- 10 /hpf renal) (test code = 5787-7) Mucus, UA (test code = Present Not Estab. 8247-9) Bacteria, UA (test code None seen None seen/Few = 5769-5) ALIS (test code = ALIS) Performed at: [address] [place] [address] [id number] Director: Matthew Buckner MD, Phone: [phone] [facility] [id number] 10:10:00 Test Item Value Reference Range Interpretation Comments CRP (test code = 7 mg/L 0-10 1987-5) ALIS (test code = Performed at: ALIS) [facility] [address] [id number] Director: Matthew Buckner MD, Phone: [phone] [place] MethodistProthrombin time with [id number] 10:10:00 Test Item Value Reference Range Interpretation Comments INR (test code = 3.0 0.8-1.2 H Reference 6301-6) interval is for non-anticoagula te d patients.Sugges te d INR therapeut ic range for Vitam in Kantagonist therapy: Standard Dose (moderate intensity therapeutic range): 2 .0 - 3.0 Higher intensity therapeutic ran ge 2.5 - 3.5 Prothrombin time 30.3 9.1- 12.0 sec H (test code = 5902-2) ALIS (test code = ALIS) Performed at: [facility] [address] [id number] Director: Matthew Buckner MD, Phone: [phone] Lab Interpretation Abnormal (test code = 32732-8) [place] MethodistComprehensive metabolic [id number] 09:08:00 Test Item Value Reference Range Interpretation Comments Glucose (test code = 127 mg/dL 65-99 H 2345-7) BUN (test code = 3094-0) 15 mg/dL 6-24 Creatinine (test code = 1.33 mg/dL 0.57-1 H 2160-0) EGFR Non-Afr. Tongan 44 mL/min/1.73 >59 L (test code = 2775) EGFR 50 mL/min/1.73 >59 L (test code = 2774) BUN/creatinine ratio 11 9-23 (test code = 3097-3) Sodium (test code = 143 mmol/L 867-580 4995-2) Potassium (test code = 4.4 mmol/L 3.5-5.2 2823-3) Chloride (test code = 108 mmol/L 96-106 H 2075-0) CO2 (test code = 8-9) 21 mmol/L 20-29 Calcium (test code = 9.1 mg/dL 8.7-10.2 04042-1) Protein (test code = 6.4 g/dL 6-8.5 2885-2) Albumin, S (test code = 4.2 g/dL 3.8-4.9 1751-7) Globulin, total (test 2.2 g/dL 1.5-4.5 code = 99640-0) Albumin/globulin ratio 1.9 1.2-2.2 (test code = 1759-0) Total bilirubin (test 0.3 mg/dL 0-1.2 code = 1974-2) Alkaline phosphatase 110 39- 117 IU/L (test code = 6768-6) AST (test code = 1920-8) 24 0- 40 IU/L ALT (test code = 1742-6) 31 0- 32 IU/L ALIS (test code = ALIS) Performed at: [facility] [id number] Director: Matthew Buckner MD, Phone: [phone] Lab Interpretation (test Abnormal code = 57552-1) [place] MethodistSedimentation [id number] 09:08:00 Test Item Value Reference Range Interpretation Comments Sedimentation rate (test 12 0- 40 mm/hr code = 4537-7) ALIS (test code = ALIS) Performed at: [facility] [id number] Director: Matthew Buckner MD, Phone: [phone] [place] [facility] with platelet and [id number] 08:14:00 Test Item Value Reference Range Interpretation Comments WBC (test code = 6.9 3.4- 10.8 x10E3/uL 6690-2) RBC (test code = 4.10 3.77- 5.28 x10E6/uL 789-8) HGB (test code = 12.5 g/dL 11.1-15.9 718-7) HCT (test code = 37.2 % 34-46.6 4544-3) MCV (test code = 91 fL 79-97 787-2) MCH (test code = 30.5 pg 26.6-33 785-6) MCHC (test code = 33.6 g/dL 31.5-35.7 786-4) RDW (test code = 15.0 % 11.7-15.4 788-0) Platelet count (test 190 150- 450 x10E3/uL code = 777-3) Neutrophils (test code 72 % Not Estab. = 770-8) Lymphocytes (test code 14 % Not Estab. = 736-9) Monocytes (test code = 11 % Not Estab. 5905-5) Eosinophils (test code 2 % Not Estab. = 713-8) Basophils (test code = 1 % Not Estab. 706-2) Neutrophils, absolute 5.0 1.4- 7.0 x10E3/uL (test code = 751-8) Lymphocytes, absolute 0.9 0.7- 3.1 x10E3/uL (test code = 731-0) Monocytes, absolute 0.7 0.1- 0.9 x10E3/uL (test code = 742-7) Eosinophils, absolute 0.1 0.0- 0.4 x10E3/uL (test code = 711-2) Basophils, absolute 0.0 0.0- 0.2 x10E3/uL (test code = 704-7) Immature granulocytes 0 % Not Estab. (test code = 27793-9) Immature grans (abs) 0.0 0.0- 0.1 x10E3/uL (test code = 90857-4) ALIS (test code = ALIS) Performed at: [address] [place] [address] [id number] Director: Matthew Buckner MD, Phone: [phone] [facility] [id number] 06:09:00 Test Item Value Reference Range Interpretation Comments Urine culture (test No growth code = 630-4) ALIS (test code = ALIS) Performed at: [address] [place] [address] [id number] Director: Matthew Buckner MD, Phone: [phone] [facility] protein/creatinine ratio, [id number] 18:08:00 Test Item Value Reference Range Interpretation Comments Creatinine, urine, 138.5 mg/dL Not Estab. random (test code = 2161-8) Protein, urine (test 17.6 mg/dL Not Estab. code = 2888-6) Protein/Creat Ratio 127 0- 200 mg/g creat (test code = 2890-2) ALIS (test code = Performed at: ) [facility] [address] [id number] Director: Matthew Buckner MD, Phone: [phone] [facility]
[2020-02-12 17:08] LABS: Urine Blood TRACE (NEG); Urine Glucose NEGATIVE (NEG); Urine Protein NEGATIVE (NEG); Urine Specific Gravity 1.015 (1.005-1.030); Urine pH 5.5 (5.0-7.0)
--- NOTE | 2020-02-12 17:25 | RAD REPORT ---
EXAM DESCRIPTION: CT - Stone Protocol - 02/12/2020 4:59 pm CLINICAL HISTORY: Abdominal pain. COMPARISON: 2011 TECHNIQUE: Computed axial tomography of the abdomen pelvis was obtained without oral or IV contrast. Lack of IV and oral contrast limits evaluation of solid organs, bowel, and vessels. Coronal reformat enedelia images were obtained and reviewed. All CT scans are performed using dose optimization technique as appropriate and may include automated exposure control or mA/KV adjustment according to patient size. FINDINGS: Postsurgical changes involve the right kidney. Right renal arterial calcifications are pre sent. A renal calculus is not seen. An ureteral calculus is not noted. A bladder calculus is not pres ent. Fatty liver. Stable hepatic cysts Cholecystectomy Appendectomy The spleen, pancreas and adrenals appear grossly normal. There is no evidence of diverticulitis. IMPRESSION: Negative for a genitourinary calculus
--- NOTE | 2020-02-12 17:43 | ER ---
Nurse's Notes [facility] Name: Yaa Jacobo Age: 59 yrs Sex: Female : 1960 Arrival Date: 02/12/2020 Time: 16:17 Bed 7 Private MD: Diagnosis: Unspecified renal colic Presentation: 02/11 16:26 Chief complaint: Patient states: R flank pain since this morning. Was at PCP today, was ca1 sent here to the ER for possible kidney stone. Was given Toradol IM at the PCP, eased up the pain but still there. Denies urinary symptoms. Coronavirus screen: Client denies travel out of the [place] in the last 14 days. At this time, the client does not indicate any symptoms associated with coronavirus-19. Ebola Screen: Patient negative for fever greater than or equal to 101.5 degrees Fahrenheit, and additional compatible Ebola Virus Disease symptoms Patient denies exposure to infectious person. Patient denies travel to an Ebola-affected area in the 21 days before illness onset. No symptoms or risks identified at this time. Initial Sepsis Screen: Does the patient meet any 2 criteria? No. Patient's initial sepsis screen is negative. Does the patient have a suspected source of infection? No. Patient's initial sepsis screen is negative. Risk Assessment: Do you want to hurt yourself or someone else? Patient reports no desire to harm self or others. Onset of symptoms was February 12, 2020. 16:26 Method Of Arrival: Wheelchair ca1 16:26 Acuity: JODIE 3 ca1 Historical: - Allergies: 16:31 Codeine; ca1 - PMHx: 16:31 blood clot in foot; Hypertension; lupus anticoag; PVD; scleraderma; Raynaud's; ca1 - PSHx: 16:31 Appendectomy; Cholecystectomy; Hysterectomy; partial nephrectomy - right; Bladder ca1 suspension; - Immunization history:: Adult Immunizations up to date. - Social history:: Smoking status: Patient denies any tobacco usage or history of. Screenin:37 Abuse screen: Denies threats or abuse. Denies injuries from another. Nutritional jl7 screening: No deficits noted. Tuberculosis screening: No symptoms or risk factors identified. Fall Risk None identified. Assessment: 17:37 General: Appears in no apparent distress. uncomfortable, Behavior is calm, cooperative, jl7 appropriate for age. Pain: Complains of pain in right flank Pain currently is 0 out of 10 on a pain scale. Neuro: Level of Consciousness is awake, alert, obeys commands, Oriented to person, place, time, situation. Cardiovascular: Patient's skin is warm and dry. Respiratory: Airway is patent Respiratory effort is even, unlabored, Respiratory pattern is regular, symmetrical. GI: Bowel sounds present X 4 quads. Abd is soft and non tender Patient currently denies diarrhea, nausea, vomiting. : Reports pain in right flank(s). Derm: Skin is pink, warm \T\ dry. Vital Signs: 16:26 BP 131 / 61; Pulse 77; Resp 15 S; Temp 98.9(TE); Pulse Ox 99% on R/A; Weight 73.48 kg ca1 (R); Height 5 ft. 2 in. (157.48 cm) (R); Pain 8/10; 17:37 BP 141 / 87; Pulse 71; Resp 17; Pulse Ox 97% ; Pain 0/10; jl7 16:26 Body Mass Index 29.63 (73.48 kg, 157.48 cm) ca1 ED Course: 16:17 Patient arrived in ED. as 16:29 Triage completed. ca1 16:31 Arm band placed on right wrist. ca1 16:39 Marylin Izquierdo FNP-C is [facility]. snw 16:39 Loyd Mandujano MD is Attending Physician. snw 16:59 CT Stone Protocol In Process Unspecified. EDMS 17:33 Sonia Del Rosario, RN is Primary Nurse. jl7 17:37 Patient has correct armband on for positive identification. Bed in low position. Call jl7 light in reach. Side rails up X 1. Pulse ox on. NIBP on. 17:50 No provider procedures requiring assistance completed. Patient did not have IV access jl7 during this emergency room visit. Administered Medications: No medications were administered Outcome: 17:42 Discharge ordered by . snw 17:50 Discharged to home ambulatory. jl7 17:50 Condition: stable 17:50 Discharge instructions given to patient, Instructed on discharge instructions, follow up and referral plans. medication usage, Demonstrated understanding of instructions, follow-up care, medications, Prescriptions given X 1. 17:51 Patient left the ED. jl7 Signatures: Dispatcher [employer] EDMS Carisa Izquierdoy, MECHANIC WELDER TRUCK DRIVER-C MECHANIC WELDER TRUCK DRIVER-Csnw Milli Ching Jahala, RN RN jl7 Josselyn Wolfe, RN RN ca1
--- NOTE | 2020-02-12 17:43 | EDPHYS ---
Physician Documentation [facility] Name: Yaa Jacobo Age: 59 yrs Sex: Female : 1960 Arrival Date: 02/12/2020 Time: 16:17 Bed 7 Private MD: ED Physician Loyd Mandujano HPI: 02/11 18:04 This 59 yrs old Female presents to ER via Wheelchair with complaints of snw Possible Kidney Stone. 18:04 The patient complains of pain in the right mid back. The pain does not radiate. Onset: snw The symptoms/episode began/occurred suddenly, yesterday. Associated signs and symptoms: The patient has no apparent associated signs or symptoms. Severity of pain: At its worst the pain was moderate severe in the emergency department the pain has improved. The patient has experienced similar episodes in the past. The patient has been recently seen by a physician: the patient's primary care provider, earlier today, with similar presenting complaints. Historical: - Allergies: 16:31 Codeine; ca1 - PMHx: 16:31 blood clot in foot; Hypertension; lupus anticoag; PVD; scleraderma; Raynaud's; ca1 - PSHx: 16:31 Appendectomy; Cholecystectomy; Hysterectomy; partial nephrectomy - right; Bladder ca1 suspension; - Immunization history:: Adult Immunizations up to date. - Social history:: Smoking status: Patient denies any tobacco usage or history of. ROS: 18:03 Constitutional: Negative for fever, chills, and weight loss, Eyes: Negative for injury, snw pain, redness, and discharge, ENT: Negative for injury, pain, and discharge, Neck: Negative for injury, pain, and swelling, Cardiovascular: Negative for chest pain, palpitations, and edema, Respiratory: Negative for shortness of breath, cough, wheezing, and pleuritic chest pain, Abdomen/GI: Negative for abdominal pain, nausea, vomiting, diarrhea, and constipation, : Negative for injury, bleeding, discharge, and swelling, MS/Extremity: Negative for injury and deformity, Skin: Negative for injury, rash, and discoloration, Neuro: Negative for headache, weakness, numbness, tingling, and seizure, Psych: Negative for depression, anxiety, suicide ideation, homicidal ideation, and hallucinations. 18:03 Back: Positive for flank pain, on the right. Exam: 18:02 Constitutional: This is a well developed, well nourished patient who is awake, alert, snw and in no acute distress. Head/Face: Normocephalic, atraumatic. Eyes: Pupils equal round and reactive to light, extra-ocular motions intact. Lids and lashes normal. Conjunctiva and sclera are non-icteric and not injected. Cornea within normal limits. Periorbital areas with no swelling, redness, or edema. ENT: Nares patent. No nasal discharge, no septal abnormalities noted. Tympanic membranes are normal and external auditory canals are clear. Oropharynx with no redness, swelling, or masses, exudates, or evidence of obstruction, uvula midline. Mucous membranes moist. Neck: Trachea midline, no thyromegaly or masses palpated, and no cervical lymphadenopathy. Supple, full range of motion without nuchal rigidity, or vertebral point tenderness. No Meningismus. Chest/axilla: Normal chest wall appearance and motion. Nontender with no deformity. No lesions are appreciated. Cardiovascular: Regular rate and rhythm with a normal S1 and S2. No gallops, murmurs, or rubs. Normal PMI, no JVD. No pulse deficits. Respiratory: Lungs have equal breath sounds bilaterally, clear to auscultation and percussion. No rales, rhonchi or wheezes noted. No increased work of breathing, no retractions or nasal flaring. Abdomen/GI: Soft, non-tender, with normal bowel sounds. No distension or tympany. No guarding or rebound. No evidence of tenderness throughout. Back: No spinal tenderness. No costovertebral tenderness. Full range of motion. Skin: Warm, dry with normal turgor. Normal color with no rashes, no lesions, and no evidence of cellulitis. MS/ Extremity: Pulses equal, no cyanosis. Neurovascular intact. Full, normal range of motion. Neuro: Awake and alert, GCS 15, oriented to person, place, time, and situation. Cranial nerves II-XII grossly intact. Motor strength 5/5 in all extremities. Sensory grossly intact. Cerebellar exam normal. Normal gait. Psych: Awake, alert, with orientation to person, place and time. Behavior, mood, and affect are within normal limits. Vital Signs: 16:26 BP 131 / 61; Pulse 77; Resp 15 S; Temp 98.9(TE); Pulse Ox 99% on R/A; Weight 73.48 kg ca1 (R); Height 5 ft. 2 in. (157.48 cm) (R); Pain 8/10; 17:37 BP 141 / 87; Pulse 71; Resp 17; Pulse Ox 97% ; Pain 0/10; jl7 16:26 Body Mass Index 29.63 (73.48 kg, 157.48 cm) ca1 MDM: 17:23 Patient medically screened. [facility] 18:03 Data reviewed: vital signs, nurses notes. Data interpreted: Pulse oximetry: on room air snw is 97 %. Interpretation: normal. Counseling: I had a detailed discussion with the patient and/or guardian regarding: the historical points, exam findings, and any diagnostic results supporting the discharge/admit diagnosis, the presence of at least one elevated blood pressure reading (>120/80) during this emergency department visit, lab results, the need for outpatient follow up, to return to the emergency department if symptoms worsen or persist or if there are any questions or concerns that arise at home. Special discussion: Based on the history and exam findings, there is no indication for further emergent testing or inpatient evaluation. I discussed with the patient/guardian the need to see the primary care provider for further evaluation of the symptoms. 02/11 16:52 Order name: Urine Dipstick--Ancillary (enter results); Complete Time: 17:11 bd 02/11 16:38 Order name: CT Stone Protocol; Complete Time: 17:34 snw 02/11 16:50 Order name: Urine Dipstick-Ancillary (obtain specimen); Complete Time: 16:50 ca1 Administered Medications: No medications were administered Disposition: 02/12 08:41 Co-signature as Attending Physician, Loyd Mandujano MD I agree with the assessment and [facility] plan of care. Disposition: 02/12/20 17:42 Discharged to Home. Impression: Unspecified renal colic. - Condition is Stable. - Discharge Instructions: Renal Colic, Dietary Guidelines to Help Prevent Kidney Stones, Rehydration, Adult. - Prescriptions for Gas- X - take 1 unit by ORAL route 1-3 times daily; 1 box. - Medication Reconciliation Form, Thank You Letter, Antibiotic Education, Prescription Opioid Use form. - Follow up: Private Physician; When: 2 - 3 days; Reason: Recheck today's complaints, Continuance of care, Re-evaluation by your physician. Follow up: Emergency Department; When: As needed; Reason: Fever > 102 F, Worsening of condition. Signatures: Dispatcher [employer] EDMS Loyd Mandujano MD MD cha Waters, Shelly, BEAN ROASTER-C BEAN ROASTER-Csnw Sonia Del Rosario RN RN jl7 Josselyn Wolfe RN RN ca1 Corrections: (The following items were deleted from the chart) 02/11 17:51 17:42 02/12/2020 17:42 Discharged to Home. Impression: Unspecified renal colic. jl7 Condition is Stable. Forms are Medication Reconciliation Form, Thank You Letter, Antibiotic Education, Prescription Opioid Use. Follow up: Private Physician; When: 2 - 3 days; Reason: Recheck today's complaints, Continuance of care, Re-evaluation by your physician. Follow up: Emergency Department; When: As needed; Reason: Fever > 102 F, Worsening of condition. snw
[2020-02-12 17:56] VITALS: TEMP 98.9
[2020-02-12 17:58] VITALS: BP 141/87; O2SAT 97
== END 2020-02-12 17:51 | disposition home or self-care (01) ==
LOC: ER 16:15
DX: N23 Unspecified renal colic (principal); I10 Essential (primary) hypertension; Z88.5 Allergy status to narcotic agent
CPT/HCPCS: 74176; 76377; 81003; 99283